=== PATIENT | male | born 1960 | race Hispanic/Latino ===

== ENCOUNTER 2020-09-04 12:37 | Emergency (ER) | payer MEDICARE, SELFPAY ==
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
[2020-09-04 14:10] LABS: Basophils # (Auto) 0.1 K/mm3 (0.0-0.1); Basophils % (Auto) 0.7 % (0.0-1.8); Eosinophils % (Auto) 0.3 % (0.0-4.3); Hematocrit 45.5 % (35.5-45.6); Hemoglobin 14.8 gm/dl (11.8-15.2); Lymphocytes # (Auto) 0.9 K/mm3 (1.2-5.4); Lymphocytes % (Auto) 7.4 % (13.4-35.0); Mean Corpuscular HGB Conc 33 % (32-34); Mean Corpuscular Volume 89 fl (84-94); Monocytes # (Auto) 0.4 K/mm3 (0.0-0.8); Monocytes % (Auto) 3.2 % (0.0-7.3); Platelet Count 353 K/mm3 (140-440); Red Blood Count 5.09 M/mm3 (3.65-5.03)
[2020-09-04 14:57] LABS: Blood Urea Nitrogen 11 mg/dL (9-20); Calcium 9.5 mg/dL (8.4-10.2); Hemolysis Index 13
[2020-09-04 14:58] LABS: BUN/Creatinine Ratio 22
[2020-09-04 15:39] LABS: Bilirubin,Urine NEG (Negative); Blood,Urine NEG (Negative); Color,Urine Straw (Yellow); Mucus,Urine FEW /HPF; Protein,Urine <15 mg/dL mg/dL (Negative); RBC,Urine < 1.0 /HPF (0.0-6.0); Urobilinogen,Urine < 2.0 mg/dL (<2.0)
[2020-09-04 15:47] LABS: Amphetamine Screen,Urine PRESUMPTIVE NEGATIVE; Benzodiazepines Screen,Urine PRESUMPTIVE NEGATIVE; Cannabinoid Screen,Urine PRESUMPTIVE NEGATIVE; Cocaine Screen,Urine PRESUMPTIVE NEGATIVE; Methadone Screen,Urine PRESUMPTIVE NEGATIVE; Opiate Screen,Urine PRESUMPTIVE NEGATIVE
[2020-09-04] MEDS: levoFLOXacin 500 MG TAB PO SCH (18:06)
[2020-09-04] MEDS: ACETAMINOPHEN 325 MG TAB PO PRN (20:07)
[2020-09-05] MEDS ORDERED: clonazePAM 0.5 MG TAB PO PRN (08:43)
[2020-09-05] MEDS ORDERED: ALPRAZolam 0.5 MG TAB PO PRN (08:43)
[2020-09-05] MEDS ORDERED: hydrOXYzine HCL 25 MG TAB PO PRN (08:43)
[2020-09-05] MEDS ORDERED: diphenhydrAMINE 25 MG CAP PO PRN (08:43)
[2020-09-05] MEDS: ACETAMINOPHEN 325 MG TAB PO PRN (08:53)
[2020-09-05] MEDS ORDERED: MEMANTINE 10 MG TAB PO SCH (10:00)
[2020-09-05] MEDS ORDERED: FAMOTIDINE 20 MG TAB PO SCH (10:00)
[2020-09-05] MEDS: levoFLOXacin 500 MG TAB PO SCH (10:08)
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
[2020-09-05] MEDS ORDERED: risperiDONE 0.25 MG TAB PO SCH (12:00)
[2020-09-05] MEDS ORDERED: VALPROIC ACID 250 MG CAP PO SCH (12:00)
[2020-09-05 19:28] VITALS: BP 95/50
[2020-09-05] MEDS ORDERED: PRAVASTATIN 40 MG TAB PO SCH (22:00)
== END 2020-09-05 19:48 | disposition other institution (70) ==
LOC: ED 12:37
DX: F25.9 Schizoaffective disorder, unspecified (principal); N39.0 Urinary tract infection, site not specified; I10 Essential (primary) hypertension; F31.9 Bipolar disorder, unspecified; Z98.890 Other specified postprocedural states; Z87.891 Personal history of nicotine dependence; Z79.899 Other long term (current) drug therapy
CPT/HCPCS: 36415; 80048; 80307; 81001; 85025; 99285; U0003; 80320; A9270-GY; G0480

== ENCOUNTER 2020-09-05 16:16 | Inpatient (IN) | payer MEDICARE ==
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
[2020-09-05] MEDS: traZODone 50 MG TAB PO SCH (22:31)
[2020-09-05] MEDS: OMEGA-3 FATTY ACIDS/FISH OIL 1 GRAM CAP PO SCH (22:31)
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
[2020-09-06] MEDS: risperiDONE 0.25 MG TAB PO SCH ×2 (11:01→21:38)
[2020-09-06] MEDS: VALPROIC ACID 250 MG CAP PO SCH ×2 (11:01→21:38)
[2020-09-06] MEDS: OMEGA-3 FATTY ACIDS/FISH OIL 1 GRAM CAP PO SCH ×2 (11:02→21:37)
[2020-09-06] MEDS: PARoxetine 10 MG TAB PO SCH (11:07)
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
[2020-09-06] MEDS: traZODone 50 MG TAB PO SCH (21:37)
[2020-09-06] MEDS: MELATONIN 5 MG TAB PO PRN (21:38)
--- NOTE | 2020-09-07 09:16 | Progress Note ---
Subjective Date of service: 09/07/20 Principal diagnosis: (1) Schizoaffective disorder/Outbursts of explosive behavior Subjective Comment: Per Psych Nurse: Pt is observed in his room isolative and withdrawn with the covers over his head. He states he feels sad but is unable to verbalize why he f eels that way. He minimally interacts with staff but shows no s/s of distress. Psych Progress Patient reports he is fine, has no complaints, no behavioral issues reported per nurse and compliant with medicine. patient has history of dementia with underlying cognitive impairement hence only interacts minimally verbally. REVIEW OF SYSTEMS Constitutional: Negative for weight loss ENT: Negative for stridor Respiratory: Negative for cough or hemoptysis All other systems reviewed and are negative MENTAL STATUS EXAMINATION General Appearance and Behavior: Age appropriate, good hygiene, wearing appropriate clothes, , good eye contact, cooperative with questioning. Cooperation: Participating/engaged Psychomotor Behavior: unremarkable and within normal limits Mood: Good Affect and affective range: congruent with mood Thought Process: Fluent/Logical, Thought Content: Within reality Speech: confused, pressured, loud volume Intellectual Functioning: Average Suicidal Ideation: denies Homicidal Ideation: Denies HI Impulse Control: Impaired Insight and Judgment: Limited insight and judgment Memory: Prospective memory impaired Attention: Normal Orientation: Alert, oriented Assessment and Plan - Psychiatric problem (1) Schizoaffective disorder Current Visit: Yes Status: Acute (2) Outbursts of explosive behavior Current Visit: Yes Status: Acute Treatment Plan Started on Valproate and Parozetine Patient admitted for inpatient psychiatric evaluation, medication adjustment and close monitoring The patient's behavior, mood, sleep and appetite will be closely monitored. Patient enrolled in individual and group therapeutic sessions and encouraged to attend. Patient provided with a safe and structured environment. Patient's physical health needs will be addressed by the Hospitalist. Hospitalist Consulted Labs including CBC, CMP, Lipid profile and Hemoglobin A1C levels ordered for baseline reference Social Assessment will be completed and the Self Pay Collector will work with patient and family to ensure a suitable and safe disposition Medication adjustment will be made as clinically indicated Usual Wellness Yarsani/Preservation: - Start Trazodone 50 mg po QHS & 50 mg po QHS PRN between 10 PM & 2 AM for insomnia - Start Melatonin 5 mg po QHS to promote circadian rhythm - Start [place]-3 for brain health, reduce impulsivity, and as adjunctive treatment for mood disorder, continue upon discharge given overall benefits. - Start B1 prophylaxis with 200 mg po for 5 days The patient agreed on the treatment plan, understood the risk, benefit, alternative treatment, potential consequence of no treatment, and gave informed consent. Initial Certification Inpatient psych services: I certify that the inpatient psychiatric services are required for treatment that could reasonably be expected to improve the patient's condition. Estimated days: 6 Post hospital care: primary care provider, psychiatric provider Medications and Allergies Allergies Allergy/AdvReac Type Severity Reaction Status Date / Time No Known Allergies Allergy Unverified 09/04/20 19:43 Home Medications Medication Instructions Recorded Confirmed Last Taken Type Escitalopram [Lexapro] 10 mg PO DAILY 09/05/20 09/07/20 Unknown History Famotidine [Acid Controller] 20 mg PO BID 09/05/20 09/07/20 Unknown History HYDROcodone/ACETAMINOPHEN 5 - 325 mg PO PRN 09/05/20 09/07/20 Unknown History [Verdrocet 2.5-325 mg TAB] ISOSORBIDE MONOnitrate [Imdur ER] 30 mg PO DAILY 09/05/20 09/07/20 Unknown History Memantine [Namenda] 10 mg PO BID 09/05/20 09/07/20 Unknown History Pravastatin [Pravachol] 40 mg PO QHS 09/05/20 09/07/20 Unknown History Tamsulosin [Flomax] 0.4 mg PO QDAY 09/05/20 09/07/20 Unknown History amantadine [Symmetrel] 100 mg PO DAILY 09/05/20 09/07/20 Unknown History clonazePAM [ Klonopin] 0.5 mg PO DAILY PRN 09/05/20 09/07/20 Unknown History hydrOXYzine HCL [Atarax] 25 mg PO Q6HR PRN 09/05/20 09/07/20 Unknown History Multivitamin 1 tab PO DAILY 09/07/20 09/07/20 Unknown History Sennosides [Senna] 8.6 mg PO QPM 09/07/20 09/07/20 Unknown History Vitamin D3 50,000UNIT CAP 50,000 unit PO QWEEK 09/07/20 09/07/20 Unknown History Active Meds: Active Medications Fish Oil (Fish Oil) 2,000 mg PO BID [facility] Last Admin: 09/06/20 21:37 Dose: 2,000 mg Documented by: Melatonin (Melatonin) 5 mg PO QHS PRN PRN Reason: Sleep Last Admin: 09/06/20 21:38 Dose: 5 mg Documented by: Paroxetine HCl (Paxil) 10 mg PO QDAY [facility] Last Admin: 09/06/20 11:07 Dose: Not Given Documented by: Risperidone (Risperdal) 0.5 mg PO BID [facility] Last Admin: 09/06/20 21:38 Dose: 0.5 mg Documented by: Trazodone HCl (Desyrel) 50 mg PO QHS [facility] Last Admin: 09/06/20 21:37 Dose: 50 mg Documented by: Valproic Acid (Depakene) 250 mg PO BID [facility] Last Admin: 09/06/20 21:38 Dose: 250 mg Documented by: Results - Results Labs/Vitals: Laboratory Last Values POC Glucose 97 (70-105) 09/07/20 08:17 Last Vital Signs Temp 98.9 F 09/06/20 19:45 Pulse 73 09/06/20 19:45 Resp 20 09/06/20 19:45 BP 103/61 09/06/20 19:45 Pulse Ox 96 09/06/20 19:45
[2020-09-07] MEDS: CETIRIZINE 10 MG TAB PO SCH (10:35)
[2020-09-07] MEDS: OMEGA-3 FATTY ACIDS/FISH OIL 1 GRAM CAP PO SCH ×2 (10:35→21:07)
[2020-09-07] MEDS: VALPROIC ACID 250 MG CAP PO SCH ×2 (10:35→21:07)
[2020-09-07] MEDS: risperiDONE 0.25 MG TAB PO SCH ×2 (10:35→21:07)
[2020-09-07] MEDS: PARoxetine 10 MG TAB PO SCH (12:07)
[2020-09-07 16:07] LABS: Alanine Aminotransferase 27 units/L (7-56); Blood Urea Nitrogen 15 mg/dL (9-20); Calcium 9.5 mg/dL (8.4-10.2); Hemolysis Index 17
[2020-09-07 16:08] LABS: BUN/Creatinine Ratio 30; Chol/HDL Ratio 2.61 %
[2020-09-07 16:13] LABS: Basophils # (Auto) 0.1 K/mm3 (0.0-0.1); Basophils % (Auto) 1.3 % (0.0-1.8); Eosinophils # (Auto) 0.2 K/mm3 (0.0-0.4); Eosinophils % (Auto) 2.5 % (0.0-4.3); Hematocrit 45.4 % (35.5-45.6); Hemoglobin 15.1 gm/dl (11.8-15.2); Lymphocytes # (Auto) 2.3 K/mm3 (1.2-5.4); Mean Corpuscular HGB Conc 33 % (32-34); Mean Corpuscular Volume 91 fl (84-94); Monocytes # (Auto) 0.6 K/mm3 (0.0-0.8); Monocytes % (Auto) 6.3 % (0.0-7.3); Platelet Count 362 K/mm3 (140-440); Red Blood Count 5.01 M/mm3 (3.65-5.03); Red Cell Distribution Width 13.9 % (13.2-15.2)
[2020-09-07 16:17] LABS: Hepatitis B Surface Antigen Non-Reactive (Negative); Hepatitis C Virus Antibody Non-Reactive (NonReactive)
[2020-09-07] MEDS: MELATONIN 5 MG TAB PO PRN (21:07)
[2020-09-07] MEDS: traZODone 50 MG TAB PO SCH (21:07)
--- NOTE | 2020-09-08 09:17 | Progress Note ---
Subjective Date of service: 09/08/20 Principal diagnosis: (1) Schizoaffective disorder/Outbursts of explosive behavior Subjective Comment: Per Psych Nurse: Pt is non ambulatory and uses a wheel chair. He is a/o x 2 mood and affect is pleasant. Pt answers in the affirmative to all question while smiling inappropriately. He appears to have some difficulty in understanding questions,but is easily redirectable. Pt is compliant with routine meds and prn melatonin 5mg given for sleep which was effective. Appetite good and no complaints of pain or itching. Pt is encouraged to attend to his adls. No behavior issues. Will continue to monitor q 15 min for safety. Psych Progress Patient has history of dementia with underlying cognitive impairement hence only interacts minimally verbally. Patient always respond to conversation in the same way everyday by extending his arms out. Patient looks happy, reports doing good, says food is good and has had no behavioral issues he also says he has not gotten in fight with no one. Reason for continuing inpatient psychiatric hospitalization: Check Valproate levels tomorrow. EVIEW OF SYSTEMS Constitutional: Negative for weight loss ENT: Negative for stridor Respiratory: Negative for cough or hemoptysis All other systems reviewed and are negative MENTAL STATUS EXAMINATION General Appearance and Behavior: Age appropriate, good hygiene, wearing appropriate clothes, , good eye contact, cooperative with questioning. Cooperation: Participating/engaged Psychomotor Behavior: unremarkable and within normal limits Mood: Good Affect and affective range: congruent with mood Thought Process: Fluent/Logical, Thought Content: Within reality Speech: confused, pressured, loud volume Intellectual Functioning: Average Suicidal Ideation: denies Homicidal Ideation: Denies HI Impulse Control: Impaired Insight and Judgment: Limited insight and judgment Memory: Prospective memory impaired Attention: Normal Orientation: Alert, oriented Assessment and Plan - Psychiatric problem (1) Schizoaffective disorder Current Visit: Yes Status: Acute (2) Outbursts of explosive behavior Current Visit: Yes Status: Acute Treatment Plan Started on Valproate and Parozetine. WIll check valproate levels tomorrow Patient admitted for inpatient psychiatric evaluation, medication adjustment and close monitoring The patient's behavior, mood, sleep and appetite will be closely monitored. Patient enrolled in individual and group therapeutic sessions and encouraged to attend. Patient provided with a safe and structured environment. Patient's physical health needs will be addressed by the Hospitalist. Hospitalist Consulted Labs including CBC, CMP, Lipid profile and Hemoglobin A1C levels ordered for baseline reference Social Assessment will be completed and the Help Desk Representative will work with patient and family to ensure a suitable and safe disposition Medication adjustment will be made as clinically indicated Usual Wellness Mormonism/Preservation: - Start Trazodone 50 mg po QHS & 50 mg po QHS PRN between 10 PM & 2 AM for insomnia - Start Melatonin 5 mg po QHS to promote circadian rhythm - Start [place]-3 for brain health, reduce impulsivity, and as adjunctive treatment for mood disorder, continue upon discharge given overall benefits. - Start B1 prophylaxis with 200 mg po for 5 days The patient agreed on the treatment plan, understood the risk, benefit, alternative treatment, potential consequence of no treatment, and gave informed consent. Initial Certification Inpatient psych services: I certify that the inpatient psychiatric services are required for treatment that could reasonably be expected to improve the patient's condition. Estimated days: 5 Post hospital care: primary care provider, psychiatric provider Medications and Allergies Allergies Allergy/AdvReac Type Severity Reaction Status Date / Time No Known Allergies Allergy Unverified 09/04/20 19:43 Home Medications Medication Instructions Recorded Confirmed Last Taken Type Escitalopram [Lexapro] 10 mg PO DAILY 09/05/20 09/07/20 Unknown History Famotidine [Acid Controller] 20 mg PO BID 09/05/20 09/07/20 Unknown History HYDROcodone/ACETAMINOPHEN 5 - 325 mg PO PRN 09/05/20 09/07/20 Unknown History [Verdrocet 2.5-325 mg TAB] ISOSORBIDE MONOnitrate [Imdur ER] 30 mg PO DAILY 09/05/20 09/07/20 Unknown History Memantine [Namenda] 10 mg PO BID 09/05/20 09/07/20 Unknown History Pravastatin [Pravachol] 40 mg PO QHS 09/05/20 09/07/20 Unknown History Tamsulosin [Flomax] 0.4 mg PO QDAY 09/05/20 09/07/20 Unknown History amantadine [Symmetrel] 100 mg PO DAILY 09/05/20 09/07/20 Unknown History clonazePAM [ Klonopin] 0.5 mg PO DAILY PRN 09/05/20 09/07/20 Unknown History hydrOXYzine HCL [Atarax] 25 mg PO Q6HR PRN 09/05/20 09/07/20 Unknown History Multivitamin 1 tab PO DAILY 09/07/20 09/07/20 Unknown History Sennosides [Senna] 8.6 mg PO QPM 09/07/20 09/07/20 Unknown History Vitamin D3 50,000UNIT CAP 50,000 unit PO QWEEK 09/07/20 09/07/20 Unknown History Active Meds: Active Medications Cetirizine HCl (Cetirizine) 10 mg PO QDAY [facility] Last Admin: 09/07/20 10:35 Dose: 10 mg Documented by: Fish Oil (Fish Oil) 2,000 mg PO BID [facility] Last Admin: 09/07/20 21:07 Dose: 2,000 mg Documented by: Melatonin (Melatonin) 5 mg PO QHS PRN PRN Reason: Sleep Last Admin: 09/07/20 21:07 Dose: 5 mg Documented by: Paroxetine HCl (Paxil) 10 mg PO QDAY [facility] Last Admin: 09/07/20 12:07 Dose: 10 mg Documented by: Risperidone (Risperdal) 0.5 mg PO BID [facility] Last Admin: 09/07/20 21:07 Dose: 0.5 mg Documented by: Trazodone HCl (Desyrel) 50 mg PO QHS [facility] Last Admin: 09/07/20 21:07 Dose: 50 mg Documented by: Valproic Acid (Depakene) 250 mg PO BID [facility] Last Admin: 09/07/20 21:07 Dose: 250 mg Documented by: Results - Results Labs/Vitals: Laboratory Last Values WBC 9.1 K/mm3 (4.5-11.0) 09/07/20 15:11 RBC 5.01 M/mm3 (3.65-5.03) 09/07/20 15:11 Hgb 15.1 gm/dl (11.8-15.2) 09/07/20 15:11 Hct 45.4 % (35.5-45.6) 09/07/20 15:11 MCV 91 fl (84-94) 09/07/20 15:11 MCH 30 pg (28-32) 09/07/20 15:11 MCHC 33 % (32-34) 09/07/20 15:11 RDW 13.9 % (13.2-15.2) 09/07/20 15:11 Plt Count 362 K/mm3 (140-440) 09/07/20 15:11 Lymph % (Auto) 25.0 % (13.4-35.0) 09/07/20 15:11 [place] % (Auto) 6.3 % (0.0-7.3) 09/07/20 15:11 Eos % (Auto) 2.5 % (0.0-4.3) 09/07/20 15:11 Baso % (Auto) 1.3 % (0.0-1.8) 09/07/20 15:11 Lymph # (Auto) 2.3 K/mm3 (1.2-5.4) 09/07/20 15:11 [place] # (Auto) 0.6 K/mm3 (0.0-0.8) 09/07/20 15:11 Eos # (Auto) 0.2 K/mm3 (0.0-0.4) 09/07/20 15:11 Baso # (Auto) 0.1 K/mm3 (0.0-0.1) 09/07/20 15:11 Seg Neutrophils % 64.9 % (40.0-70.0) 09/07/20 15:11 Seg Neutrophils # 5.9 K/mm3 (1.8-7.7) 09/07/20 15:11 Sodium 137 mmol/L (137-145) 09/07/20 15:11 Potassium 4.0 mmol/L (3.6-5.0) 09/07/20 15:11 Chloride 98.8 mmol/L (98-107) 09/07/20 15:11 Carbon Dioxide 22 mmol/L (22-30) 09/07/20 15:11 Anion Gap 20 mmol/L 09/07/20 15:11 BUN 15 mg/dL (9-20) 09/07/20 15:11 Creatinine 0.5 mg/dL (0.8-1.3) L 09/07/20 15:11 Estimated GFR > 60 ml/min 09/07/20 15:11 BUN/Creatinine Ratio 30 % 09/07/20 15:11 Glucose 95 mg/dL (75-100) 09/07/20 15:11 POC Glucose 89 (70-105) 09/08/20 08:02 Hemoglobin A1c 5.2 % (4-6) 09/07/20 15:11 Calcium 9.5 mg/dL (8.4-10.2) 09/07/20 15:11 Total Bilirubin 0.20 mg/dL (0.1-1.2) 09/07/20 15:11 AST 16 units/L (5-40) 09/07/20 15:11 ALT 27 units/L (7-56) 09/07/20 15:11 Alkaline Phosphatase 170 units/L (35-129) H 09/07/20 15:11 Total Protein 7.3 g/dL (6.3-8.2) 09/07/20 15:11 Albumin 4.0 g/dL (3.9-5) 09/07/20 15:11 Albumin/Globulin Ratio 1.2 % 09/07/20 15:11 Triglycerides 150 mg/dL (2-149) H 09/07/20 15:11 Cholesterol 154 mg/dL (50-199) 09/07/20 15:11 LDL Cholesterol Direct 80 mg/dL (50-130) 09/07/20 15:11 HDL Cholesterol 59 mg/dL (40-59) 09/07/20 15:11 Cholesterol/HDL Ratio 2.61 % 09/07/20 15:11 TSH 0.845 mlU/mL (0.270-4.200) 09/07/20 15:11 Hepatitis A IgM Ab Non-reactive (NonReactive) 09/07/20 15:11 Hep Bs Antigen Non-reactive (Negative) 09/07/20 15:11 Hep B Core IgM Ab Non-reactive (NonReactive) 09/07/20 15:11 Hepatitis C Antibody Non-reactive (NonReactive) 09/07/20 15:11 Last Vital Signs Temp 99.1 F 09/07/20 19:24 Pulse 65 09/07/20 19:24 Resp 16 09/07/20 19:24 BP 116/70 09/07/20 19:24 Pulse Ox 95 09/07/20 19:24
[2020-09-08] MEDS: OMEGA-3 FATTY ACIDS/FISH OIL 1 GRAM CAP PO SCH ×2 (11:21→21:10)
[2020-09-08] MEDS: risperiDONE 0.25 MG TAB PO SCH ×2 (11:22→21:10)
[2020-09-08] MEDS: CETIRIZINE 10 MG TAB PO SCH (11:22)
[2020-09-08] MEDS: VALPROIC ACID 250 MG CAP PO SCH ×2 (11:22→21:10)
[2020-09-08] MEDS: PARoxetine 10 MG TAB PO SCH (12:55)
[2020-09-08] MEDS: traZODone 50 MG TAB PO SCH (21:10)
[2020-09-08] MEDS: MELATONIN 5 MG TAB PO PRN (21:12)
[2020-09-09] MEDS: OMEGA-3 FATTY ACIDS/FISH OIL 1 GRAM CAP PO SCH ×2 (09:05→21:20)
[2020-09-09] MEDS: VALPROIC ACID 250 MG CAP PO SCH ×2 (09:05→21:20)
[2020-09-09] MEDS: CETIRIZINE 10 MG TAB PO SCH (09:05)
[2020-09-09] MEDS: risperiDONE 0.25 MG TAB PO SCH (09:05)
--- NOTE | 2020-09-09 11:03 | Progress Note ---
Subjective Date of service: 09/09/20 Principal diagnosis: (1) Schizoaffective disorder/Outbursts of explosive behavior Subjective Comment: The patient's medical record was reviewed and the patient's progress was discussed with the nursing staff. The staff states the patient has occasionally yelling and outburst. Also states his thought process is disorganized and he answers yes to every question. During my interview with the patient today he is rolling around in his wheelchair. He is a/ox 1. He is [place]. The patient states he was brought to the hospital because of "my legs and back." He says, "and I'm itching all over." The patient denies SI/HI or hallucinations of any kind. Reason for continued inpatient admission: The patient continues to have outburst and have disorganized thought process. Will continue to stabilize and treat. EVIEW OF SYSTEMS Constitutional: Negative for weight loss ENT: Negative for stridor Respiratory: Negative for cough or hemoptysis All other systems reviewed and are negative MENTAL STATUS EXAMINATION General Appearance and Behavior: Age appropriate, wearing appropriate clothes, calm and cooperative. Polite Mood: "okay" Affect and affective range: congruent with mood Thought Process: reported by nurse as disorganized at times Thought Content: hallucinations Speech: Normal volume, Regular rate and rhythm Suicidal Ideation: Denies Homicidal Ideation: Denies Hallucinations: Denies Delusions: None elicited Impulse Control: Unimpaired Insight and Judgment: Limited insight and judgment Memory/Cognition: Impaired Attention: Normal Orientation: Alert, oriented Assessment (1) Schizoaffective disorder Current Visit: Yes Status: Acute (2) Outbursts of explosive behavior Current Visit: Yes Status: Acute Treatment Plan Patient admitted for inpatient psychiatric evaluation, medication adjustment and close monitoring The patient's behavior, mood, sleep and appetite will be closely monitored. Patient enrolled in individual and group therapeutic sessions and encouraged to attend. Patient provided with a safe and structured environment. Patient's physical health needs will be addressed by the Hospitalist. Hospitalist Consulted Labs including CBC, CMP, Lipid profile and Hemoglobin A1C levels ordered for baseline reference Social Assessment will be completed and the Air Quality Instrument Specialist will work with patient and family to ensure a suitable and safe disposition Medication adjustment will be made as clinically indicated Increase Risperidone 1mg po BID Usual Wellness Mandaeism/Preservation: - Start Trazodone 50 mg po QHS & 50 mg po QHS PRN between 10 PM & 2 AM for insomnia - Start Melatonin 5 mg po QHS to promote circadian rhythm Estimated days: 7 Post hospital care: primary care provider, psychiatric provider Medications and Allergies Allergies Allergy/AdvReac Type Severity Reaction Status Date / Time No Known Allergies Allergy Unverified 09/04/20 19:43 Home Medications Medication Instructions Recorded Confirmed Last Taken Type Escitalopram [Lexapro] 10 mg PO DAILY 09/05/20 09/07/20 Unknown History Famotidine [Acid Controller] 20 mg PO BID 09/05/20 09/07/20 Unknown History HYDROcodone/ACETAMINOPHEN 5 - 325 mg PO PRN 09/05/20 09/07/20 Unknown History [Verdrocet 2.5-325 mg TAB] ISOSORBIDE MONOnitrate [Imdur ER] 30 mg PO DAILY 09/05/20 09/07/20 Unknown History Memantine [Namenda] 10 mg PO BID 09/05/20 09/07/20 Unknown History Pravastatin [Pravachol] 40 mg PO QHS 09/05/20 09/07/20 Unknown History Tamsulosin [Flomax] 0.4 mg PO QDAY 09/05/20 09/07/20 Unknown History amantadine [Symmetrel] 100 mg PO DAILY 09/05/20 09/07/20 Unknown History clonazePAM [ Klonopin] 0.5 mg PO DAILY PRN 09/05/20 09/07/20 Unknown History hydrOXYzine HCL [Atarax] 25 mg PO Q6HR PRN 09/05/20 09/07/20 Unknown History Multivitamin 1 tab PO DAILY 09/07/20 09/07/20 Unknown History Sennosides [Senna] 8.6 mg PO QPM 09/07/20 09/07/20 Unknown History Vitamin D3 50,000UNIT CAP 50,000 unit PO QWEEK 09/07/20 09/07/20 Unknown History Active Meds: Active Medications Cetirizine HCl (Cetirizine) 10 mg PO QDAY [facility] Last Admin: 09/09/20 09:05 Dose: 10 mg Documented by: Fish Oil (Fish Oil) 2,000 mg PO BID [facility] Last Admin: 09/09/20 09:05 Dose: 2,000 mg Documented by: Melatonin (Melatonin) 5 mg PO QHS PRN PRN Reason: Sleep Last Admin: 09/08/20 21:12 Dose: 5 mg Documented by: Paroxetine HCl (Paxil) 10 mg PO QDAY [facility] Last Admin: 09/08/20 12:55 Dose: 10 mg Documented by: Risperidone (Risperdal) 0.5 mg PO BID [facility] Last Admin: 09/09/20 09:05 Dose: 0.5 mg Documented by: Trazodone HCl (Desyrel) 50 mg PO QHS [facility] Last Admin: 09/08/20 21:10 Dose: 50 mg Documented by: Valproic Acid (Depakene) 250 mg PO BID [facility] Last Admin: 09/09/20 09:05 Dose: 250 mg Documented by: Results - Results Labs/Vitals: Laboratory Last Values WBC 9.1 K/mm3 (4.5-11.0) 09/07/20 15:11 RBC 5.01 M/mm3 (3.65-5.03) 09/07/20 15:11 Hgb 15.1 gm/dl (11.8-15.2) 09/07/20 15:11 Hct 45.4 % (35.5-45.6) 09/07/20 15:11 MCV 91 fl (84-94) 09/07/20 15:11 MCH 30 pg (28-32) 09/07/20 15:11 MCHC 33 % (32-34) 09/07/20 15:11 RDW 13.9 % (13.2-15.2) 09/07/20 15:11 Plt Count 362 K/mm3 (140-440) 09/07/20 15:11 Lymph % (Auto) 25.0 % (13.4-35.0) 09/07/20 15:11 [place] % (Auto) 6.3 % (0.0-7.3) 09/07/20 15:11 Eos % (Auto) 2.5 % (0.0-4.3) 09/07/20 15:11 Baso % (Auto) 1.3 % (0.0-1.8) 09/07/20 15:11 Lymph # (Auto) 2.3 K/mm3 (1.2-5.4) 09/07/20 15:11 [place] # (Auto) 0.6 K/mm3 (0.0-0.8) 09/07/20 15:11 Eos # (Auto) 0.2 K/mm3 (0.0-0.4) 09/07/20 15:11 Baso # (Auto) 0.1 K/mm3 (0.0-0.1) 09/07/20 15:11 Seg Neutrophils % 64.9 % (40.0-70.0) 09/07/20 15:11 Seg Neutrophils # 5.9 K/mm3 (1.8-7.7) 09/07/20 15:11 Sodium 137 mmol/L (137-145) 09/07/20 15:11 Potassium 4.0 mmol/L (3.6-5.0) 09/07/20 15:11 Chloride 98.8 mmol/L (98-107) 09/07/20 15:11 Carbon Dioxide 22 mmol/L (22-30) 09/07/20 15:11 Anion Gap 20 mmol/L 09/07/20 15:11 BUN 15 mg/dL (9-20) 09/07/20 15:11 Creatinine 0.5 mg/dL (0.8-1.3) L 09/07/20 15:11 Estimated GFR > 60 ml/min 09/07/20 15:11 BUN/Creatinine Ratio 30 % 09/07/20 15:11 Glucose 95 mg/dL (75-100) 09/07/20 15:11 POC Glucose 89 (70-105) 09/08/20 08:02 Hemoglobin A1c 5.2 % (4-6) 09/07/20 15:11 Calcium 9.5 mg/dL (8.4-10.2) 09/07/20 15:11 Total Bilirubin 0.20 mg/dL (0.1-1.2) 09/07/20 15:11 AST 16 units/L (5-40) 09/07/20 15:11 ALT 27 units/L (7-56) 09/07/20 15:11 Alkaline Phosphatase 170 units/L (35-129) H 09/07/20 15:11 Total Protein 7.3 g/dL (6.3-8.2) 09/07/20 15:11 Albumin 4.0 g/dL (3.9-5) 09/07/20 15:11 Albumin/Globulin Ratio 1.2 % 09/07/20 15:11 Triglycerides 150 mg/dL (2-149) H 09/07/20 15:11 Cholesterol 154 mg/dL (50-199) 09/07/20 15:11 LDL Cholesterol Direct 80 mg/dL (50-130) 09/07/20 15:11 HDL Cholesterol 59 mg/dL (40-59) 09/07/20 15:11 Cholesterol/HDL Ratio 2.61 % 09/07/20 15:11 TSH 0.845 mlU/mL (0.270-4.200) 09/07/20 15:11 Hepatitis A IgM Ab Non-reactive (NonReactive) 09/07/20 15:11 Hep Bs Antigen Non-reactive (Negative) 09/07/20 15:11 Hep B Core IgM Ab Non-reactive (NonReactive) 09/07/20 15:11 Hepatitis C Antibody Non-reactive (NonReactive) 09/07/20 15:11 Last Vital Signs Temp 97.6 F 09/09/20 07:21 Pulse 60 09/09/20 07:21 Resp 18 09/09/20 07:21 BP 101/56 09/09/20 07:21 Pulse Ox 95 09/09/20 07:21
[2020-09-09] MEDS: PARoxetine 10 MG TAB PO SCH (12:06)
[2020-09-09] MEDS: MELATONIN 5 MG TAB PO PRN (21:20)
[2020-09-09] MEDS: traZODone 50 MG TAB PO SCH (21:20)
[2020-09-09] MEDS: risperiDONE 1 MG TAB PO SCH (21:20)
--- NOTE | 2020-09-10 08:09 | Progress Note ---
Subjective Date of service: 09/10/20 Principal diagnosis: (1) Schizoaffective disorder/Outbursts of explosive behavior Subjective Comment: The patient's medical record was reviewed and the patient's progress was discussed with the nursing staff. During my interview with the patient today, he is sitting in the dayroom. The patient states "I'm not good, I didn't sleep all night." He says "I was itching." He denies SI/HI or hallucinations of any kind. Reason for continued inpatient admission: The patient at times has outbursts and disorganized thought process. Will continue to stabilize and treat. EVIEW OF SYSTEMS Constitutional: Negative for weight loss ENT: Negative for stridor Respiratory: Negative for cough or hemoptysis All other systems reviewed and are negative MENTAL STATUS EXAMINATION General Appearance and Behavior: Age appropriate, wearing appropriate clothes, calm and cooperative. Polite Mood: "not good" Affect and affective range: congruent with mood Thought Process: reported by nurse as disorganized at times Thought Content: hallucinations Speech: Normal volume, Regular rate and rhythm Suicidal Ideation: Denies Homicidal Ideation: Denies Hallucinations: Denies Delusions: None elicited Impulse Control: Unimpaired Insight and Judgment: Limited insight and judgment Memory/Cognition: Impaired Attention: Normal Orientation: Alert, oriented Assessment (1) Schizoaffective disorder Current Visit: Yes Status: Acute (2) Outbursts of explosive behavior Current Visit: Yes Status: Acute Treatment Plan Patient admitted for inpatient psychiatric evaluation, medication adjustment and close monitoring The patient's behavior, mood, sleep and appetite will be closely monitored. Patient enrolled in individual and group therapeutic sessions and encouraged to attend. Patient provided with a safe and structured environment. Patient's physical health needs will be addressed by the Hospitalist. Hospitalist Consulted Labs including CBC, CMP, Lipid profile and Hemoglobin A1C levels ordered for baseline reference Social Assessment will be completed and the Net Coordinator will work with patient and family to ensure a suitable and safe disposition Medication adjustment will be made as clinically indicated Increase Risperidone 1mg po BID yesterday Start Bendryl 25mg po daily prn itching Usual Wellness Sikh/Preservation: - Start Trazodone 50 mg po QHS & 50 mg po QHS PRN between 10 PM & 2 AM for insomnia - Start Melatonin 5 mg po QHS to promote circadian rhythm Estimated days: 5 Post hospital care: primary care provider, psychiatric provider Medications and Allergies Allergies Allergy/AdvReac Type Severity Reaction Status Date / Time No Known Allergies Allergy Unverified 09/04/20 19:43 Home Medications Medication Instructions Recorded Confirmed Last Taken Type Escitalopram [Lexapro] 10 mg PO DAILY 09/05/20 09/07/20 Unknown History Famotidine [Acid Controller] 20 mg PO BID 09/05/20 09/07/20 Unknown History HYDROcodone/ACETAMINOPHEN 5 - 325 mg PO PRN 09/05/20 09/07/20 Unknown History [Verdrocet 2.5-325 mg TAB] ISOSORBIDE MONOnitrate [Imdur ER] 30 mg PO DAILY 09/05/20 09/07/20 Unknown History Memantine [Namenda] 10 mg PO BID 09/05/20 09/07/20 Unknown History Pravastatin [Pravachol] 40 mg PO QHS 09/05/20 09/07/20 Unknown History Tamsulosin [Flomax] 0.4 mg PO QDAY 09/05/20 09/07/20 Unknown History amantadine [Symmetrel] 100 mg PO DAILY 09/05/20 09/07/20 Unknown History clonazePAM [ Klonopin] 0.5 mg PO DAILY PRN 09/05/20 09/07/20 Unknown History hydrOXYzine HCL [Atarax] 25 mg PO Q6HR PRN 09/05/20 09/07/20 Unknown History Multivitamin 1 tab PO DAILY 09/07/20 09/07/20 Unknown History Sennosides [Senna] 8.6 mg PO QPM 09/07/20 09/07/20 Unknown History Vitamin D3 50,000UNIT CAP 50,000 unit PO QWEEK 09/07/20 09/07/20 Unknown History Active Meds: Active Medications Cetirizine HCl (Cetirizine) 10 mg PO QDAY [facility] Last Admin: 09/09/20 09:05 Dose: 10 mg Documented by: Fish Oil (Fish Oil) 2,000 mg PO BID [facility] Last Admin: 09/09/20 21:20 Dose: 2,000 mg Documented by: Melatonin (Melatonin) 5 mg PO QHS PRN PRN Reason: Sleep Last Admin: 09/09/20 21:20 Dose: 5 mg Documented by: Paroxetine HCl (Paxil) 10 mg PO QDAY [facility] Last Admin: 09/09/20 12:06 Dose: 10 mg Documented by: Risperidone (Risperdal) 1 mg PO BID [facility] Last Admin: 09/09/20 21:20 Dose: 1 mg Documented by: Trazodone HCl (Desyrel) 50 mg PO QHS [facility] Last Admin: 09/09/20 21:20 Dose: 50 mg Documented by: Valproic Acid (Depakene) 250 mg PO BID [facility] Last Admin: 09/09/20 21:20 Dose: 250 mg Documented by: Results - Results Labs/Vitals: Laboratory Last Values WBC 9.1 K/mm3 (4.5-11.0) 09/07/20 15:11 RBC 5.01 M/mm3 (3.65-5.03) 09/07/20 15:11 Hgb 15.1 gm/dl (11.8-15.2) 09/07/20 15:11 Hct 45.4 % (35.5-45.6) 09/07/20 15:11 MCV 91 fl (84-94) 09/07/20 15:11 MCH 30 pg (28-32) 09/07/20 15:11 MCHC 33 % (32-34) 09/07/20 15:11 RDW 13.9 % (13.2-15.2) 09/07/20 15:11 Plt Count 362 K/mm3 (140-440) 09/07/20 15:11 Lymph % (Auto) 25.0 % (13.4-35.0) 09/07/20 15:11 [place] % (Auto) 6.3 % (0.0-7.3) 09/07/20 15:11 Eos % (Auto) 2.5 % (0.0-4.3) 09/07/20 15:11 Baso % (Auto) 1.3 % (0.0-1.8) 09/07/20 15:11 Lymph # (Auto) 2.3 K/mm3 (1.2-5.4) 09/07/20 15:11 [place] # (Auto) 0.6 K/mm3 (0.0-0.8) 09/07/20 15:11 Eos # (Auto) 0.2 K/mm3 (0.0-0.4) 09/07/20 15:11 Baso # (Auto) 0.1 K/mm3 (0.0-0.1) 09/07/20 15:11 Seg Neutrophils % 64.9 % (40.0-70.0) 09/07/20 15:11 Seg Neutrophils # 5.9 K/mm3 (1.8-7.7) 09/07/20 15:11 Sodium 137 mmol/L (137-145) 09/07/20 15:11 Potassium 4.0 mmol/L (3.6-5.0) 09/07/20 15:11 Chloride 98.8 mmol/L (98-107) 09/07/20 15:11 Carbon Dioxide 22 mmol/L (22-30) 09/07/20 15:11 Anion Gap 20 mmol/L 09/07/20 15:11 BUN 15 mg/dL (9-20) 09/07/20 15:11 Creatinine 0.5 mg/dL (0.8-1.3) L 09/07/20 15:11 Estimated GFR > 60 ml/min 09/07/20 15:11 BUN/Creatinine Ratio 30 % 09/07/20 15:11 Glucose 95 mg/dL (75-100) 09/07/20 15:11 POC Glucose 89 (70-105) 09/08/20 08:02 Hemoglobin A1c 5.2 % (4-6) 09/07/20 15:11 Calcium 9.5 mg/dL (8.4-10.2) 09/07/20 15:11 Total Bilirubin 0.20 mg/dL (0.1-1.2) 09/07/20 15:11 AST 16 units/L (5-40) 09/07/20 15:11 ALT 27 units/L (7-56) 09/07/20 15:11 Alkaline Phosphatase 170 units/L (35-129) H 09/07/20 15:11 Total Protein 7.3 g/dL (6.3-8.2) 09/07/20 15:11 Albumin 4.0 g/dL (3.9-5) 09/07/20 15:11 Albumin/Globulin Ratio 1.2 % 09/07/20 15:11 Triglycerides 150 mg/dL (2-149) H 09/07/20 15:11 Cholesterol 154 mg/dL (50-199) 09/07/20 15:11 LDL Cholesterol Direct 80 mg/dL (50-130) 09/07/20 15:11 HDL Cholesterol 59 mg/dL (40-59) 09/07/20 15:11 Cholesterol/HDL Ratio 2.61 % 09/07/20 15:11 TSH 0.845 mlU/mL (0.270-4.200) 09/07/20 15:11 Hepatitis A IgM Ab Non-reactive (NonReactive) 09/07/20 15:11 Hep Bs Antigen Non-reactive (Negative) 09/07/20 15:11 Hep B Core IgM Ab Non-reactive (NonReactive) 09/07/20 15:11 Hepatitis C Antibody Non-reactive (NonReactive) 09/07/20 15:11 Last Vital Signs Temp 99.0 F 09/09/20 22:00 Pulse 65 09/09/20 22:00 Resp 18 09/09/20 22:00 BP 103/63 09/09/20 22:00 Pulse Ox 96 09/09/20 22:00
[2020-09-10] MEDS ORDERED: diphenhydrAMINE 25 MG CAP PO PRN (08:12)
[2020-09-10] MEDS: PARoxetine 10 MG TAB PO SCH (09:26)
[2020-09-10] MEDS: VALPROIC ACID 250 MG CAP PO SCH ×2 (09:26→21:17)
[2020-09-10] MEDS: OMEGA-3 FATTY ACIDS/FISH OIL 1 GRAM CAP PO SCH ×2 (09:27→21:17)
[2020-09-10] MEDS: risperiDONE 1 MG TAB PO SCH ×2 (09:27→21:17)
[2020-09-10] MEDS: CETIRIZINE 10 MG TAB PO SCH (09:27)
--- NOTE | 2020-09-10 18:34 | XRay Report ---
Chest single view INDICATION: Dyspnea IMPRESSION: Ill-defined airspace disease is seen within the right perihilar region. No pneumothorax. Signer Name: Shahab Moore MD Signed: 09/10/2020 6:29 PM Workstation Name: [id number]
[2020-09-10] MEDS: traZODone 50 MG TAB PO SCH (21:15)
--- NOTE | 2020-09-11 08:30 | Progress Note ---
Subjective Date of service: 09/11/20 Principal diagnosis: (1) Schizoaffective disorder/Outbursts of explosive behavior Subjective Comment: The patient's medical record was reviewed and the patient's progress was discussed with the nursing staff. During my interview with the patient today, he is rolling in his wheelchair. The patient is pleasant. He is [place]. He says "I didn't sleep well. I thought you was giving me something for itching." Advised the patient he was ordered Benadryl. He denies SI/HI or hallucinations of any kind. Reason for continued inpatient admission: The patient has improved significantly. Will continue to stabilize to ensure for a safe discharge. EVIEW OF SYSTEMS Constitutional: Negative for weight loss ENT: Negative for stridor Respiratory: Negative for cough or hemoptysis All other systems reviewed and are negative MENTAL STATUS EXAMINATION General Appearance and Behavior: Age appropriate, wearing appropriate clothes, calm and cooperative. Polite Mood: "okay" Affect and affective range: congruent with mood Thought Process: goal directed Thought Content: None Speech: Normal volume, Regular rate and rhythm Suicidal Ideation: Denies Homicidal Ideation: Denies Hallucinations: Denies Delusions: None elicited Impulse Control: Unimpaired Insight and Judgment: Limited insight and judgment Memory/Cognition: Impaired Attention: Normal Orientation: Alert, oriented Assessment (1) Schizoaffective disorder Current Visit: Yes Status: Acute (2) Outbursts of explosive behavior Current Visit: Yes Status: Acute Treatment Plan Patient admitted for inpatient psychiatric evaluation, medication adjustment and close monitoring The patient's behavior, mood, sleep and appetite will be closely monitored. Patient enrolled in individual and group therapeutic sessions and encouraged to attend. Patient provided with a safe and structured environment. Patient's physical health needs will be addressed by the Hospitalist. Hospitalist Consulted Labs including CBC, CMP, Lipid profile and Hemoglobin A1C levels ordered for baseline reference Social Assessment will be completed and the Kiln Tester will work with patient and family to ensure a suitable and safe disposition Medication adjustment will be made as clinically indicated Start Bendryl 25mg po daily prn itching yesterday No changes today Usual Wellness Restorationist/Preservation: - Start Trazodone 50 mg po QHS & 50 mg po QHS PRN between 10 PM & 2 AM for insomnia - Start Melatonin 5 mg po QHS to promote circadian rhythm Estimated days: 3 Post hospital care: primary care provider, psychiatric provider Medications and Allergies Allergies Allergy/AdvReac Type Severity Reaction Status Date / Time No Known Allergies Allergy Unverified 09/04/20 19:43 Home Medications Medication Instructions Recorded Confirmed Last Taken Type Escitalopram [Lexapro] 10 mg PO DAILY 09/05/20 09/07/20 Unknown History Famotidine [Acid Controller] 20 mg PO BID 09/05/20 09/07/20 Unknown History HYDROcodone/ACETAMINOPHEN 5 - 325 mg PO PRN 09/05/20 09/07/20 Unknown History [Verdrocet 2.5-325 mg TAB] ISOSORBIDE MONOnitrate [Imdur ER] 30 mg PO DAILY 09/05/20 09/07/20 Unknown History Memantine [Namenda] 10 mg PO BID 09/05/20 09/07/20 Unknown History Pravastatin [Pravachol] 40 mg PO QHS 09/05/20 09/07/20 Unknown History Tamsulosin [Flomax] 0.4 mg PO QDAY 09/05/20 09/07/20 Unknown History amantadine [Symmetrel] 100 mg PO DAILY 09/05/20 09/07/20 Unknown History clonazePAM [ Klonopin] 0.5 mg PO DAILY PRN 09/05/20 09/07/20 Unknown History hydrOXYzine HCL [Atarax] 25 mg PO Q6HR PRN 09/05/20 09/07/20 Unknown History Multivitamin 1 tab PO DAILY 09/07/20 09/07/20 Unknown History Sennosides [Senna] 8.6 mg PO QPM 09/07/20 09/07/20 Unknown History Vitamin D3 50,000UNIT CAP 50,000 unit PO QWEEK 09/07/20 09/07/20 Unknown History Active Meds: Active Medications Cetirizine HCl (Cetirizine) 10 mg PO QDAY [facility] Last Admin: 09/10/20 09:27 Dose: 10 mg Documented by: Diphenhydramine HCl (Benadryl) 25 mg PO QHS PRN PRN Reason: Itching Fish Oil (Fish Oil) 2,000 mg PO BID [facility] Last Admin: 09/10/20 21:17 Dose: 2,000 mg Documented by: Melatonin (Melatonin) 5 mg PO QHS PRN PRN Reason: Sleep Last Admin: 09/09/20 21:20 Dose: 5 mg Documented by: Paroxetine HCl (Paxil) 10 mg PO QDAY [facility] Last Admin: 09/10/20 09:26 Dose: 10 mg Documented by: Risperidone (Risperdal) 1 mg PO BID [facility] Last Admin: 09/10/20 21:17 Dose: 1 mg Documented by: Trazodone HCl (Desyrel) 75 mg PO QHS [facility] Last Admin: 09/10/20 21:15 Dose: 75 mg Documented by: Valproic Acid (Depakene) 250 mg PO BID [facility] Last Admin: 09/10/20 21:17 Dose: 250 mg Documented by: Results - Results Labs/Vitals: Laboratory Last Values WBC 9.1 K/mm3 (4.5-11.0) 09/07/20 15:11 RBC 5.01 M/mm3 (3.65-5.03) 09/07/20 15:11 Hgb 15.1 gm/dl (11.8-15.2) 09/07/20 15:11 Hct 45.4 % (35.5-45.6) 09/07/20 15:11 MCV 91 fl (84-94) 09/07/20 15:11 MCH 30 pg (28-32) 09/07/20 15:11 MCHC 33 % (32-34) 09/07/20 15:11 RDW 13.9 % (13.2-15.2) 09/07/20 15:11 Plt Count 362 K/mm3 (140-440) 09/07/20 15:11 Lymph % (Auto) 25.0 % (13.4-35.0) 09/07/20 15:11 [place] % (Auto) 6.3 % (0.0-7.3) 09/07/20 15:11 Eos % (Auto) 2.5 % (0.0-4.3) 09/07/20 15:11 Baso % (Auto) 1.3 % (0.0-1.8) 09/07/20 15:11 Lymph # (Auto) 2.3 K/mm3 (1.2-5.4) 09/07/20 15:11 [place] # (Auto) 0.6 K/mm3 (0.0-0.8) 09/07/20 15:11 Eos # (Auto) 0.2 K/mm3 (0.0-0.4) 09/07/20 15:11 Baso # (Auto) 0.1 K/mm3 (0.0-0.1) 09/07/20 15:11 Seg Neutrophils % 64.9 % (40.0-70.0) 09/07/20 15:11 Seg Neutrophils # 5.9 K/mm3 (1.8-7.7) 09/07/20 15:11 Sodium 137 mmol/L (137-145) 09/07/20 15:11 Potassium 4.0 mmol/L (3.6-5.0) 09/07/20 15:11 Chloride 98.8 mmol/L (98-107) 09/07/20 15:11 Carbon Dioxide 22 mmol/L (22-30) 09/07/20 15:11 Anion Gap 20 mmol/L 09/07/20 15:11 BUN 15 mg/dL (9-20) 09/07/20 15:11 Creatinine 0.5 mg/dL (0.8-1.3) L 09/07/20 15:11 Estimated GFR > 60 ml/min 09/07/20 15:11 BUN/Creatinine Ratio 30 % 09/07/20 15:11 Glucose 95 mg/dL (75-100) 09/07/20 15:11 POC Glucose 89 (70-105) 09/08/20 08:02 Hemoglobin A1c 5.2 % (4-6) 09/07/20 15:11 Calcium 9.5 mg/dL (8.4-10.2) 09/07/20 15:11 Total Bilirubin 0.20 mg/dL (0.1-1.2) 09/07/20 15:11 AST 16 units/L (5-40) 09/07/20 15:11 ALT 27 units/L (7-56) 09/07/20 15:11 Alkaline Phosphatase 170 units/L (35-129) H 09/07/20 15:11 Total Protein 7.3 g/dL (6.3-8.2) 09/07/20 15:11 Albumin 4.0 g/dL (3.9-5) 09/07/20 15:11 Albumin/Globulin Ratio 1.2 % 09/07/20 15:11 Triglycerides 150 mg/dL (2-149) H 09/07/20 15:11 Cholesterol 154 mg/dL (50-199) 09/07/20 15:11 LDL Cholesterol Direct 80 mg/dL (50-130) 09/07/20 15:11 HDL Cholesterol 59 mg/dL (40-59) 09/07/20 15:11 Cholesterol/HDL Ratio 2.61 % 09/07/20 15:11 TSH 0.845 mlU/mL (0.270-4.200) 09/07/20 15:11 Hepatitis A IgM Ab Non-reactive (NonReactive) 09/07/20 15:11 Hep Bs Antigen Non-reactive (Negative) 09/07/20 15:11 Hep B Core IgM Ab Non-reactive (NonReactive) 09/07/20 15:11 Hepatitis C Antibody Non-reactive (NonReactive) 09/07/20 15:11 Last Vital Signs Temp 98.7 F 09/10/20 22:00 Pulse 60 09/10/20 22:00 Resp 16 09/10/20 22:00 BP 100/64 09/10/20 22:00 Pulse Ox 96 09/10/20 22:00
[2020-09-11] MEDS: OMEGA-3 FATTY ACIDS/FISH OIL 1 GRAM CAP PO SCH ×2 (09:09→21:14)
[2020-09-11] MEDS: risperiDONE 1 MG TAB PO SCH ×2 (09:10→21:13)
[2020-09-11] MEDS: CETIRIZINE 10 MG TAB PO SCH (09:10)
[2020-09-11] MEDS: VALPROIC ACID 250 MG CAP PO SCH ×2 (09:10→21:14)
[2020-09-11] MEDS: PARoxetine 10 MG TAB PO SCH (09:57)
--- NOTE | 2020-09-11 11:11 | Progress Note ---
Hospitalist Physical - Constitutional Vitals: Temp Pulse Resp BP Pulse Ox 98.7 F 60 16 100/64 96 09/10/20 22:00 09/10/20 22:00 09/10/20 22:00 09/10/20 22:00 09/10/20 22:00 General appearance: Present: no acute distress, well-nourished Results - Labs CBC & Chem 7: 09/07/20 15:11 09/07/20 15:11 Labs: Laboratory Last Values WBC 9.1 K/mm3 (4.5-11.0) 09/07/20 15:11 RBC 5.01 M/mm3 (3.65-5.03) 09/07/20 15:11 Hgb 15.1 gm/dl (11.8-15.2) 09/07/20 15:11 Hct 45.4 % (35.5-45.6) 09/07/20 15:11 MCV 91 fl (84-94) 09/07/20 15:11 MCH 30 pg (28-32) 09/07/20 15:11 MCHC 33 % (32-34) 09/07/20 15:11 RDW 13.9 % (13.2-15.2) 09/07/20 15:11 Plt Count 362 K/mm3 (140-440) 09/07/20 15:11 Lymph % (Auto) 25.0 % (13.4-35.0) 09/07/20 15:11 [place] % (Auto) 6.3 % (0.0-7.3) 09/07/20 15:11 Eos % (Auto) 2.5 % (0.0-4.3) 09/07/20 15:11 Baso % (Auto) 1.3 % (0.0-1.8) 09/07/20 15:11 Lymph # (Auto) 2.3 K/mm3 (1.2-5.4) 09/07/20 15:11 [place] # (Auto) 0.6 K/mm3 (0.0-0.8) 09/07/20 15:11 Eos # (Auto) 0.2 K/mm3 (0.0-0.4) 09/07/20 15:11 Baso # (Auto) 0.1 K/mm3 (0.0-0.1) 09/07/20 15:11 Seg Neutrophils % 64.9 % (40.0-70.0) 09/07/20 15:11 Seg Neutrophils # 5.9 K/mm3 (1.8-7.7) 09/07/20 15:11 Sodium 137 mmol/L (137-145) 09/07/20 15:11 Potassium 4.0 mmol/L (3.6-5.0) 09/07/20 15:11 Chloride 98.8 mmol/L (98-107) 09/07/20 15:11 Carbon Dioxide 22 mmol/L (22-30) 09/07/20 15:11 Anion Gap 20 mmol/L 09/07/20 15:11 BUN 15 mg/dL (9-20) 09/07/20 15:11 Creatinine 0.5 mg/dL (0.8-1.3) L 09/07/20 15:11 Estimated GFR > 60 ml/min 09/07/20 15:11 BUN/Creatinine Ratio 30 % 09/07/20 15:11 Glucose 95 mg/dL (75-100) 09/07/20 15:11 POC Glucose 89 (70-105) 09/08/20 08:02 Hemoglobin A1c 5.2 % (4-6) 09/07/20 15:11 Calcium 9.5 mg/dL (8.4-10.2) 09/07/20 15:11 Total Bilirubin 0.20 mg/dL (0.1-1.2) 09/07/20 15:11 AST 16 units/L (5-40) 09/07/20 15:11 ALT 27 units/L (7-56) 09/07/20 15:11 Alkaline Phosphatase 170 units/L (35-129) H 09/07/20 15:11 Total Protein 7.3 g/dL (6.3-8.2) 09/07/20 15:11 Albumin 4.0 g/dL (3.9-5) 09/07/20 15:11 Albumin/Globulin Ratio 1.2 % 09/07/20 15:11 Triglycerides 150 mg/dL (2-149) H 09/07/20 15:11 Cholesterol 154 mg/dL (50-199) 09/07/20 15:11 LDL Cholesterol Direct 80 mg/dL (50-130) 09/07/20 15:11 HDL Cholesterol 59 mg/dL (40-59) 09/07/20 15:11 Cholesterol/HDL Ratio 2.61 % 09/07/20 15:11 TSH 0.845 mlU/mL (0.270-4.200) 09/07/20 15:11 Hepatitis A IgM Ab Non-reactive (NonReactive) 09/07/20 15:11 Hep Bs Antigen Non-reactive (Negative) 09/07/20 15:11 Hep B Core IgM Ab Non-reactive (NonReactive) 09/07/20 15:11 Hepatitis C Antibody Non-reactive (NonReactive) 09/07/20 15:11 Oneal/IV: Voiding Method Toilet Active Medications - Current Medications Current Medications: Generic Name Dose Route Start Last Admin Trade Name Freq PRN Reason Stop Dose Admin Cetirizine HCl 10 mg 09/07/20 10:00 09/11/20 09:10 Cetirizine PO 10 mg QDAY NICOLE Administration Diphenhydramine HCl 25 mg 09/10/20 08:14 Benadryl PO QHS PRN Itching Fish Oil 2,000 mg 09/05/20 22:00 09/11/20 09:09 Fish Oil PO 2,000 mg BID NICOLE Administration Melatonin 5 mg 09/05/20 16:55 09/09/20 21:20 Melatonin PO 5 mg QHS PRN Administration Sleep Paroxetine HCl 10 mg 09/06/20 10:00 09/11/20 09:57 Paxil PO 10 mg QDAY NICOLE Administration Risperidone 1 mg 09/09/20 22:00 09/11/20 09:10 Risperdal PO 1 mg BID NICOLE Administration Trazodone HCl 75 mg 09/10/20 22:00 09/10/20 21:15 Desyrel PO 75 mg QHS NICOLE Administration Valproic Acid 250 mg 09/06/20 10:00 09/11/20 09:10 Depakene PO 250 mg BID NICOLE Administration
[2020-09-11] MEDS: diphenhydrAMINE 25 MG CAP PO PRN (20:26)
[2020-09-11] MEDS: MELATONIN 5 MG TAB PO PRN (20:27)
[2020-09-11] MEDS: traZODone 50 MG TAB PO SCH (21:13)
[2020-09-12] MEDS: VALPROIC ACID 250 MG CAP PO SCH ×2 (10:24→21:19)
[2020-09-12] MEDS: CETIRIZINE 10 MG TAB PO SCH (10:24)
[2020-09-12] MEDS: risperiDONE 1 MG TAB PO SCH ×2 (10:24→21:16)
[2020-09-12] MEDS: OMEGA-3 FATTY ACIDS/FISH OIL 1 GRAM CAP PO SCH ×2 (10:24→21:13)
--- NOTE | 2020-09-12 12:08 | Progress Note ---
Subjective Date of service: 09/12/20 Principal diagnosis: (1) Schizoaffective disorder/Outbursts of explosive behavior Subjective Comment: The patient's medical record was reviewed and the patient's progress was discussed with the nursing staff. During my interview with the patient today, he is rolling in his wheelchair. The patient is pleasant. He is [employer]. The patient still complains of not sleeping well due to the itching. He denies SI/HI or hallucinations of any kind. Reason for continued inpatient admission: The patient appears to be at his baseline. Will continue to monitor his behavior, and plan for a safe discharge once social support is confirmed. EVIEW OF SYSTEMS Constitutional: Negative for weight loss ENT: Negative for stridor Respiratory: Negative for cough or hemoptysis All other systems reviewed and are negative MENTAL STATUS EXAMINATION General Appearance and Behavior: Age appropriate, wearing appropriate clothes, calm and cooperative. Polite Mood: "okay" Affect and affective range: congruent with mood Thought Process: goal directed Thought Content: None Speech: Normal volume, Regular rate and rhythm Suicidal Ideation: Denies Homicidal Ideation: Denies Hallucinations: Denies Delusions: None elicited Impulse Control: Unimpaired Insight and Judgment: Limited insight and judgment Memory/Cognition: Impaired Attention: Normal Orientation: Alert, oriented Assessment (1) Schizoaffective disorder Current Visit: Yes Status: Acute (2) Outbursts of explosive behavior Current Visit: Yes Status: Acute Treatment Plan Patient admitted for inpatient psychiatric evaluation, medication adjustment and close monitoring The patient's behavior, mood, sleep and appetite will be closely monitored. Patient enrolled in individual and group therapeutic sessions and encouraged to attend. Patient provided with a safe and structured environment. Patient's physical health needs will be addressed by the Hospitalist. Hospitalist Consulted Labs including CBC, CMP, Lipid profile and Hemoglobin A1C levels ordered for baseline reference Social Assessment will be completed and the Hose Tubing Backer will work with patient and family to ensure a suitable and safe disposition Medication adjustment will be made as clinically indicated No changes today Usual Wellness Bahai/Preservation: - Start Trazodone 50 mg po QHS & 50 mg po QHS PRN between 10 PM & 2 AM for insomnia - Start Melatonin 5 mg po QHS to promote circadian rhythm Estimated days: 3 Post hospital care: primary care provider, psychiatric provider Medications and Allergies Allergies Allergy/AdvReac Type Severity Reaction Status Date / Time No Known Allergies Allergy Unverified 09/04/20 19:43 Home Medications Medication Instructions Recorded Confirmed Last Taken Type Escitalopram [Lexapro] 10 mg PO DAILY 09/05/20 09/07/20 Unknown History Famotidine [Acid Controller] 20 mg PO BID 09/05/20 09/07/20 Unknown History HYDROcodone/ACETAMINOPHEN 5 - 325 mg PO PRN 09/05/20 09/07/20 Unknown History [Verdrocet 2.5-325 mg TAB] ISOSORBIDE MONOnitrate [Imdur ER] 30 mg PO DAILY 09/05/20 09/07/20 Unknown History Memantine [Namenda] 10 mg PO BID 09/05/20 09/07/20 Unknown History Pravastatin [Pravachol] 40 mg PO QHS 09/05/20 09/07/20 Unknown History Tamsulosin [Flomax] 0.4 mg PO QDAY 09/05/20 09/07/20 Unknown History amantadine [Symmetrel] 100 mg PO DAILY 09/05/20 09/07/20 Unknown History clonazePAM [ Klonopin] 0.5 mg PO DAILY PRN 09/05/20 09/07/20 Unknown History hydrOXYzine HCL [Atarax] 25 mg PO Q6HR PRN 09/05/20 09/07/20 Unknown History Multivitamin 1 tab PO DAILY 09/07/20 09/07/20 Unknown History Sennosides [Senna] 8.6 mg PO QPM 09/07/20 09/07/20 Unknown History Vitamin D3 50,000UNIT CAP 50,000 unit PO QWEEK 09/07/20 09/07/20 Unknown History Active Meds: Active Medications Cetirizine HCl (Cetirizine) 10 mg PO QDAY [facility] Last Admin: 09/12/20 10:24 Dose: 10 mg Documented by: Diphenhydramine HCl (Benadryl) 25 mg PO QHS PRN PRN Reason: Itching Last Admin: 09/11/20 20:26 Dose: 25 mg Documented by: Fish Oil (Fish Oil) 2,000 mg PO BID [facility] Last Admin: 09/12/20 10:24 Dose: 2,000 mg Documented by: Melatonin (Melatonin) 5 mg PO QHS PRN PRN Reason: Sleep Last Admin: 09/11/20 20:27 Dose: 5 mg Documented by: Paroxetine HCl (Paxil) 10 mg PO QDAY [facility] Last Admin: 09/11/20 09:57 Dose: 10 mg Documented by: Risperidone (Risperdal) 1 mg PO BID [facility] Last Admin: 09/12/20 10:24 Dose: 1 mg Documented by: Trazodone HCl (Desyrel) 75 mg PO QHS [facility] Last Admin: 09/11/20 21:13 Dose: 75 mg Documented by: Valproic Acid (Depakene) 250 mg PO BID [facility] Last Admin: 09/12/20 10:24 Dose: 250 mg Documented by: Results - Results Labs/Vitals: Laboratory Last Values WBC 9.1 K/mm3 (4.5-11.0) 09/07/20 15:11 RBC 5.01 M/mm3 (3.65-5.03) 09/07/20 15:11 Hgb 15.1 gm/dl (11.8-15.2) 09/07/20 15:11 Hct 45.4 % (35.5-45.6) 09/07/20 15:11 MCV 91 fl (84-94) 09/07/20 15:11 MCH 30 pg (28-32) 09/07/20 15:11 MCHC 33 % (32-34) 09/07/20 15:11 RDW 13.9 % (13.2-15.2) 09/07/20 15:11 Plt Count 362 K/mm3 (140-440) 09/07/20 15:11 Lymph % (Auto) 25.0 % (13.4-35.0) 09/07/20 15:11 [place] % (Auto) 6.3 % (0.0-7.3) 09/07/20 15:11 Eos % (Auto) 2.5 % (0.0-4.3) 09/07/20 15:11 Baso % (Auto) 1.3 % (0.0-1.8) 09/07/20 15:11 Lymph # (Auto) 2.3 K/mm3 (1.2-5.4) 09/07/20 15:11 [place] # (Auto) 0.6 K/mm3 (0.0-0.8) 09/07/20 15:11 Eos # (Auto) 0.2 K/mm3 (0.0-0.4) 09/07/20 15:11 Baso # (Auto) 0.1 K/mm3 (0.0-0.1) 09/07/20 15:11 Seg Neutrophils % 64.9 % (40.0-70.0) 09/07/20 15:11 Seg Neutrophils # 5.9 K/mm3 (1.8-7.7) 09/07/20 15:11 Sodium 137 mmol/L (137-145) 09/07/20 15:11 Potassium 4.0 mmol/L (3.6-5.0) 09/07/20 15:11 Chloride 98.8 mmol/L (98-107) 09/07/20 15:11 Carbon Dioxide 22 mmol/L (22-30) 09/07/20 15:11 Anion Gap 20 mmol/L 09/07/20 15:11 BUN 15 mg/dL (9-20) 09/07/20 15:11 Creatinine 0.5 mg/dL (0.8-1.3) L 09/07/20 15:11 Estimated GFR > 60 ml/min 09/07/20 15:11 BUN/Creatinine Ratio 30 % 09/07/20 15:11 Glucose 95 mg/dL (75-100) 09/07/20 15:11 POC Glucose 89 (70-105) 09/08/20 08:02 Hemoglobin A1c 5.2 % (4-6) 09/07/20 15:11 Calcium 9.5 mg/dL (8.4-10.2) 09/07/20 15:11 Total Bilirubin 0.20 mg/dL (0.1-1.2) 09/07/20 15:11 AST 16 units/L (5-40) 09/07/20 15:11 ALT 27 units/L (7-56) 09/07/20 15:11 Alkaline Phosphatase 170 units/L (35-129) H 09/07/20 15:11 Total Protein 7.3 g/dL (6.3-8.2) 09/07/20 15:11 Albumin 4.0 g/dL (3.9-5) 09/07/20 15:11 Albumin/Globulin Ratio 1.2 % 09/07/20 15:11 Triglycerides 150 mg/dL (2-149) H 09/07/20 15:11 Cholesterol 154 mg/dL (50-199) 09/07/20 15:11 LDL Cholesterol Direct 80 mg/dL (50-130) 09/07/20 15:11 HDL Cholesterol 59 mg/dL (40-59) 09/07/20 15:11 Cholesterol/HDL Ratio 2.61 % 09/07/20 15:11 TSH 0.845 mlU/mL (0.270-4.200) 09/07/20 15:11 Hepatitis A IgM Ab Non-reactive (NonReactive) 09/07/20 15:11 Hep Bs Antigen Non-reactive (Negative) 09/07/20 15:11 Hep B Core IgM Ab Non-reactive (NonReactive) 09/07/20 15:11 Hepatitis C Antibody Non-reactive (NonReactive) 09/07/20 15:11 Last Vital Signs Temp 98.8 F 09/12/20 09:04 Pulse 66 09/12/20 09:04 Resp 18 09/12/20 09:04 BP 104/56 09/12/20 09:04 Pulse Ox 95 09/12/20 09:04
[2020-09-12] MEDS: PARoxetine 10 MG TAB PO SCH (18:44)
[2020-09-12] MEDS: traZODone 50 MG TAB PO SCH (21:14)
--- NOTE | 2020-09-13 07:26 | Progress Note ---
Subjective Date of service: 09/13/20 Principal diagnosis: (1) Schizoaffective disorder/Outbursts of explosive behavior Subjective Comment: Per Psych Nurse: Last evening the patient smiled often. He is still unable to give much information and continues to answer all questions with yes. His affect is content. He denies si/hi/ah/vh. Overnight the patient rested quietly. He presents as sleeping 8 hours. Will continue to monitor patient for safety. Psych Progress Patient seen this a.m. reports doing good denies having any abnormal thought disorders patient reported as normal to go back to his family because he thinks they do not take good care of him otherwise patient has had no behavioral issues reported by the nurses. Reason for continuing inpatient psychiatric hospitalization: Patient is pending safe discharge EVIEW OF SYSTEMS Constitutional: Negative for weight loss ENT: Negative for stridor Respiratory: Negative for cough or hemoptysis All other systems reviewed and are negative MENTAL STATUS EXAMINATION General Appearance and Behavior: Age appropriate, good hygiene, wearing appropriate clothes, , good eye contact, cooperative with questioning. Cooperation: Participating/engaged Psychomotor Behavior: unremarkable and within normal limits Mood: Good Affect and affective range: congruent with mood Thought Process: Fluent/Logical, Thought Content: Within reality Speech: confused, pressured, loud volume Intellectual Functioning: Average Suicidal Ideation: denies Homicidal Ideation: Denies HI Impulse Control: Impaired Insight and Judgment: Limited insight and judgment Memory: Prospective memory impaired Attention: Normal Orientation: Alert, oriented Assessment and Plan - Psychiatric problem (1) Schizoaffective disorder Current Visit: Yes Status: Acute (2) Outbursts of explosive behavior Current Visit: Yes Status: Acute Treatment Plan Continue current medic Patient admitted for inpatient psychiatric evaluation, medication adjustment and close monitoring The patient's behavior, mood, sleep and appetite will be closely monitored. Patient enrolled in individual and group therapeutic sessions and encouraged to attend. Patient provided with a safe and structured environment. Patient's physical health needs will be addressed by the Hospitalist. Hospitalist Consulted Labs including CBC, CMP, Lipid profile and Hemoglobin A1C levels ordered for baseline reference Social Assessment will be completed and the Angle Shear Set Up Operator will work with patient and family to ensure a suitable and safe disposition Medication adjustment will be made as clinically indicated Usual Wellness Mandaeism/Preservation: - Start Trazodone 50 mg po QHS & 50 mg po QHS PRN between 10 PM & 2 AM for insomnia - Start Melatonin 5 mg po QHS to promote circadian rhythm - Start [place]-3 for brain health, reduce impulsivity, and as adjunctive treatment for mood disorder, continue upon discharge given overall benefits. - Start B1 prophylaxis with 200 mg po for 5 days The patient agreed on the treatment plan, understood the risk, benefit, alternative treatment, potential consequence of no treatment, and gave informed consent. Initial Certification Inpatient psych services: I certify that the inpatient psychiatric services are required for treatment that could reasonably be expected to improve the patient's condition. Estimated days: 5 Post hospital care: primary care provider, psychiatric provider Medications and Allergies Allergies Allergy/AdvReac Type Severity Reaction Status Date / Time No Known Allergies Allergy Unverified 09/04/20 19:43 Home Medications Medication Instructions Recorded Confirmed Last Taken Type Escitalopram [Lexapro] 10 mg PO DAILY 09/05/20 09/07/20 Unknown History Famotidine [Acid Controller] 20 mg PO BID 09/05/20 09/07/20 Unknown History HYDROcodone/ACETAMINOPHEN 5 - 325 mg PO PRN 09/05/20 09/07/20 Unknown History [Verdrocet 2.5-325 mg TAB] ISOSORBIDE MONOnitrate [Imdur ER] 30 mg PO DAILY 09/05/20 09/07/20 Unknown History Memantine [Namenda] 10 mg PO BID 09/05/20 09/07/20 Unknown History Pravastatin [Pravachol] 40 mg PO QHS 09/05/20 09/07/20 Unknown History Tamsulosin [Flomax] 0.4 mg PO QDAY 09/05/20 09/07/20 Unknown History amantadine [Symmetrel] 100 mg PO DAILY 09/05/20 09/07/20 Unknown History clonazePAM [ Klonopin] 0.5 mg PO DAILY PRN 09/05/20 09/07/20 Unknown History hydrOXYzine HCL [Atarax] 25 mg PO Q6HR PRN 09/05/20 09/07/20 Unknown History Multivitamin 1 tab PO DAILY 09/07/20 09/07/20 Unknown History Sennosides [Senna] 8.6 mg PO QPM 09/07/20 09/07/20 Unknown History Vitamin D3 50,000UNIT CAP 50,000 unit PO QWEEK 09/07/20 09/07/20 Unknown History Active Meds: Active Medications Cetirizine HCl (Cetirizine) 10 mg PO QDAY [facility] Last Admin: 09/12/20 10:24 Dose: 10 mg Documented by: Diphenhydramine HCl (Benadryl) 25 mg PO QHS PRN PRN Reason: Itching Last Admin: 09/11/20 20:26 Dose: 25 mg Documented by: Fish Oil (Fish Oil) 2,000 mg PO BID [facility] Last Admin: 09/12/20 21:13 Dose: 2,000 mg Documented by: Melatonin (Melatonin) 5 mg PO QHS PRN PRN Reason: Sleep Last Admin: 09/11/20 20:27 Dose: 5 mg Documented by: Paroxetine HCl (Paxil) 10 mg PO QDAY [facility] Last Admin: 09/12/20 18:44 Dose: 10 mg Documented by: Risperidone (Risperdal) 1 mg PO BID [facility] Last Admin: 09/12/20 21:16 Dose: 1 mg Documented by: Trazodone HCl (Desyrel) 75 mg PO QHS [facility] Last Admin: 09/12/20 21:14 Dose: 75 mg Documented by: Valproic Acid (Depakene) 250 mg PO BID [facility] Last Admin: 09/12/20 21:19 Dose: 250 mg Documented by: Results - Results Labs/Vitals: Laboratory Last Values WBC 9.1 K/mm3 (4.5-11.0) 09/07/20 15:11 RBC 5.01 M/mm3 (3.65-5.03) 09/07/20 15:11 Hgb 15.1 gm/dl (11.8-15.2) 09/07/20 15:11 Hct 45.4 % (35.5-45.6) 09/07/20 15:11 MCV 91 fl (84-94) 09/07/20 15:11 MCH 30 pg (28-32) 09/07/20 15:11 MCHC 33 % (32-34) 09/07/20 15:11 RDW 13.9 % (13.2-15.2) 09/07/20 15:11 Plt Count 362 K/mm3 (140-440) 09/07/20 15:11 Lymph % (Auto) 25.0 % (13.4-35.0) 09/07/20 15:11 [place] % (Auto) 6.3 % (0.0-7.3) 09/07/20 15:11 Eos % (Auto) 2.5 % (0.0-4.3) 09/07/20 15:11 Baso % (Auto) 1.3 % (0.0-1.8) 09/07/20 15:11 Lymph # (Auto) 2.3 K/mm3 (1.2-5.4) 09/07/20 15:11 [place] # (Auto) 0.6 K/mm3 (0.0-0.8) 09/07/20 15:11 Eos # (Auto) 0.2 K/mm3 (0.0-0.4) 09/07/20 15:11 Baso # (Auto) 0.1 K/mm3 (0.0-0.1) 09/07/20 15:11 Seg Neutrophils % 64.9 % (40.0-70.0) 09/07/20 15:11 Seg Neutrophils # 5.9 K/mm3 (1.8-7.7) 09/07/20 15:11 Sodium 137 mmol/L (137-145) 09/07/20 15:11 Potassium 4.0 mmol/L (3.6-5.0) 09/07/20 15:11 Chloride 98.8 mmol/L (98-107) 09/07/20 15:11 Carbon Dioxide 22 mmol/L (22-30) 09/07/20 15:11 Anion Gap 20 mmol/L 09/07/20 15:11 BUN 15 mg/dL (9-20) 09/07/20 15:11 Creatinine 0.5 mg/dL (0.8-1.3) L 09/07/20 15:11 Estimated GFR > 60 ml/min 09/07/20 15:11 BUN/Creatinine Ratio 30 % 09/07/20 15:11 Glucose 95 mg/dL (75-100) 09/07/20 15:11 POC Glucose 89 (70-105) 09/08/20 08:02 Hemoglobin A1c 5.2 % (4-6) 09/07/20 15:11 Calcium 9.5 mg/dL (8.4-10.2) 09/07/20 15:11 Total Bilirubin 0.20 mg/dL (0.1-1.2) 09/07/20 15:11 AST 16 units/L (5-40) 09/07/20 15:11 ALT 27 units/L (7-56) 09/07/20 15:11 Alkaline Phosphatase 170 units/L (35-129) H 09/07/20 15:11 Total Protein 7.3 g/dL (6.3-8.2) 09/07/20 15:11 Albumin 4.0 g/dL (3.9-5) 09/07/20 15:11 Albumin/Globulin Ratio 1.2 % 09/07/20 15:11 Triglycerides 150 mg/dL (2-149) H 09/07/20 15:11 Cholesterol 154 mg/dL (50-199) 09/07/20 15:11 LDL Cholesterol Direct 80 mg/dL (50-130) 09/07/20 15:11 HDL Cholesterol 59 mg/dL (40-59) 09/07/20 15:11 Cholesterol/HDL Ratio 2.61 % 09/07/20 15:11 TSH 0.845 mlU/mL (0.270-4.200) 09/07/20 15:11 Hepatitis A IgM Ab Non-reactive (NonReactive) 09/07/20 15:11 Hep Bs Antigen Non-reactive (Negative) 09/07/20 15:11 Hep B Core IgM Ab Non-reactive (NonReactive) 09/07/20 15:11 Hepatitis C Antibody Non-reactive (NonReactive) 09/07/20 15:11 Last Vital Signs Temp 99.0 F 09/12/20 20:36 Pulse 64 09/12/20 19:05 Resp 18 09/12/20 20:36 BP 128/69 09/12/20 19:05 Pulse Ox 94 09/12/20 19:05
[2020-09-13] MEDS: VALPROIC ACID 250 MG CAP PO SCH ×2 (10:00→21:17)
[2020-09-13] MEDS: OMEGA-3 FATTY ACIDS/FISH OIL 1 GRAM CAP PO SCH ×2 (10:00→21:17)
[2020-09-13] MEDS: CETIRIZINE 10 MG TAB PO SCH (10:00)
[2020-09-13] MEDS: PARoxetine 10 MG TAB PO SCH (10:00)
[2020-09-13] MEDS: risperiDONE 1 MG TAB PO SCH ×2 (10:01→21:17)
[2020-09-13] MEDS: traZODone 50 MG TAB PO SCH (21:17)
[2020-09-14] MEDS: risperiDONE 1 MG TAB PO SCH ×2 (09:29→21:32)
[2020-09-14] MEDS: OMEGA-3 FATTY ACIDS/FISH OIL 1 GRAM CAP PO SCH ×2 (09:29→21:32)
[2020-09-14] MEDS: CETIRIZINE 10 MG TAB PO SCH (09:29)
[2020-09-14] MEDS: PARoxetine 10 MG TAB PO SCH (09:29)
[2020-09-14] MEDS: VALPROIC ACID 250 MG CAP PO SCH ×2 (09:29→21:33)
--- NOTE | 2020-09-14 09:31 | Progress Note ---
Subjective Date of service: 09/14/20 Principal diagnosis: (1) Schizoaffective disorder/Outbursts of explosive behavior Subjective Comment: Per Psych Nurse: pt received in dayroom pleasant, A&O to person, place and situation. Pt denies SI/HI and AVH. Close monitoring continues Psych Progress Patient has history of cognitive impairement/dementia, pending safety discharge. reports doing fine today, denies having any complaints but says his back hurts and would like something for pain. Denies SI, HI and no observed mood irritablity. Reason for continuing inpatient psychiatric hospitalization: Patient is pending safe discharge EVIEW OF SYSTEMS Constitutional: Negative for weight loss ENT: Negative for stridor Respiratory: Negative for cough or hemoptysis All other systems reviewed and are negative MENTAL STATUS EXAMINATION General Appearance and Behavior: Age appropriate, good hygiene, wearing appropriate clothes, , good eye contact, cooperative with questioning. Cooperation: Participating/engaged Psychomotor Behavior: unremarkable and within normal limits Mood: Good Affect and affective range: congruent with mood Thought Process: Fluent/Logical, Thought Content: Within reality Speech: confused, pressured, loud volume Intellectual Functioning: Average Suicidal Ideation: denies Homicidal Ideation: Denies HI Impulse Control: Impaired Insight and Judgment: Limited insight and judgment Memory: Prospective memory impaired Attention: Normal Orientation: Alert, oriented Assessment and Plan - Psychiatric problem (1) Schizoaffective disorder Current Visit: Yes Status: Acute (2) Outbursts of explosive behavior Current Visit: Yes Status: Acute Treatment Plan Continue current medic Patient admitted for inpatient psychiatric evaluation, medication adjustment and close monitoring The patient's behavior, mood, sleep and appetite will be closely monitored. Patient enrolled in individual and group therapeutic sessions and encouraged to attend. Patient provided with a safe and structured environment. Patient's physical health needs will be addressed by the Hospitalist. Hospitalist Consulted Labs including CBC, CMP, Lipid profile and Hemoglobin A1C levels ordered for baseline reference Social Assessment will be completed and the Automobile Contract Clerk will work with patient and family to ensure a suitable and safe disposition Medication adjustment will be made as clinically indicated Usual Wellness Hindu/Preservation: - Start Trazodone 50 mg po QHS & 50 mg po QHS PRN between 10 PM & 2 AM for insomnia - Start Melatonin 5 mg po QHS to promote circadian rhythm - Start [place]-3 for brain health, reduce impulsivity, and as adjunctive treatment for mood disorder, continue upon discharge given overall benefits. - Start B1 prophylaxis with 200 mg po for 5 days The patient agreed on the treatment plan, understood the risk, benefit, alternative treatment, potential consequence of no treatment, and gave informed consent. Initial Certification Inpatient psych services: I certify that the inpatient psychiatric services are required for treatment that could reasonably be expected to improve the patient's condition. Estimated days: 5 Post hospital care: primary care provider, psychiatric provider Medications and Allergies Allergies Allergy/AdvReac Type Severity Reaction Status Date / Time No Known Allergies Allergy Unverified 09/04/20 19:43 Home Medications Medication Instructions Recorded Confirmed Last Taken Type Escitalopram [Lexapro] 10 mg PO DAILY 09/05/20 09/07/20 Unknown History Famotidine [Acid Controller] 20 mg PO BID 09/05/20 09/07/20 Unknown History HYDROcodone/ACETAMINOPHEN 5 - 325 mg PO PRN 09/05/20 09/07/20 Unknown History [Verdrocet 2.5-325 mg TAB] ISOSORBIDE MONOnitrate [Imdur ER] 30 mg PO DAILY 09/05/20 09/07/20 Unknown History Memantine [Namenda] 10 mg PO BID 09/05/20 09/07/20 Unknown History Pravastatin [Pravachol] 40 mg PO QHS 09/05/20 09/07/20 Unknown History Tamsulosin [Flomax] 0.4 mg PO QDAY 09/05/20 09/07/20 Unknown History amantadine [Symmetrel] 100 mg PO DAILY 09/05/20 09/07/20 Unknown History clonazePAM [ Klonopin] 0.5 mg PO DAILY PRN 09/05/20 09/07/20 Unknown History hydrOXYzine HCL [Atarax] 25 mg PO Q6HR PRN 09/05/20 09/07/20 Unknown History Multivitamin 1 tab PO DAILY 09/07/20 09/07/20 Unknown History Sennosides [Senna] 8.6 mg PO QPM 09/07/20 09/07/20 Unknown History Vitamin D3 50,000UNIT CAP 50,000 unit PO QWEEK 09/07/20 09/07/20 Unknown History Active Meds: Active Medications Cetirizine HCl (Cetirizine) 10 mg PO QDAY [facility] Last Admin: 09/14/20 09:29 Dose: 10 mg Documented by: Diphenhydramine HCl (Benadryl) 25 mg PO QHS PRN PRN Reason: Itching Last Admin: 09/11/20 20:26 Dose: 25 mg Documented by: Fish Oil (Fish Oil) 2,000 mg PO BID [facility] Last Admin: 09/14/20 09:29 Dose: 2,000 mg Documented by: Melatonin (Melatonin) 5 mg PO QHS PRN PRN Reason: Sleep Last Admin: 09/11/20 20:27 Dose: 5 mg Documented by: Paroxetine HCl (Paxil) 10 mg PO QDAY [facility] Last Admin: 09/14/20 09:29 Dose: 10 mg Documented by: Risperidone (Risperdal) 1 mg PO BID [facility] Last Admin: 09/14/20 09:29 Dose: 1 mg Documented by: Trazodone HCl (Desyrel) 75 mg PO QHS [facility] Last Admin: 09/13/20 21:17 Dose: 75 mg Documented by: Valproic Acid (Depakene) 250 mg PO BID [facility] Last Admin: 09/14/20 09:29 Dose: 250 mg Documented by: Results - Results Labs/Vitals: Laboratory Last Values WBC 9.1 K/mm3 (4.5-11.0) 09/07/20 15:11 RBC 5.01 M/mm3 (3.65-5.03) 09/07/20 15:11 Hgb 15.1 gm/dl (11.8-15.2) 09/07/20 15:11 Hct 45.4 % (35.5-45.6) 09/07/20 15:11 MCV 91 fl (84-94) 09/07/20 15:11 MCH 30 pg (28-32) 09/07/20 15:11 MCHC 33 % (32-34) 09/07/20 15:11 RDW 13.9 % (13.2-15.2) 09/07/20 15:11 Plt Count 362 K/mm3 (140-440) 09/07/20 15:11 Lymph % (Auto) 25.0 % (13.4-35.0) 09/07/20 15:11 [place] % (Auto) 6.3 % (0.0-7.3) 09/07/20 15:11 Eos % (Auto) 2.5 % (0.0-4.3) 09/07/20 15:11 Baso % (Auto) 1.3 % (0.0-1.8) 09/07/20 15:11 Lymph # (Auto) 2.3 K/mm3 (1.2-5.4) 09/07/20 15:11 [place] # (Auto) 0.6 K/mm3 (0.0-0.8) 09/07/20 15:11 Eos # (Auto) 0.2 K/mm3 (0.0-0.4) 09/07/20 15:11 Baso # (Auto) 0.1 K/mm3 (0.0-0.1) 09/07/20 15:11 Seg Neutrophils % 64.9 % (40.0-70.0) 09/07/20 15:11 Seg Neutrophils # 5.9 K/mm3 (1.8-7.7) 09/07/20 15:11 Sodium 137 mmol/L (137-145) 09/07/20 15:11 Potassium 4.0 mmol/L (3.6-5.0) 09/07/20 15:11 Chloride 98.8 mmol/L (98-107) 09/07/20 15:11 Carbon Dioxide 22 mmol/L (22-30) 09/07/20 15:11 Anion Gap 20 mmol/L 09/07/20 15:11 BUN 15 mg/dL (9-20) 09/07/20 15:11 Creatinine 0.5 mg/dL (0.8-1.3) L 09/07/20 15:11 Estimated GFR > 60 ml/min 09/07/20 15:11 BUN/Creatinine Ratio 30 % 09/07/20 15:11 Glucose 95 mg/dL (75-100) 09/07/20 15:11 POC Glucose 89 (70-105) 09/08/20 08:02 Hemoglobin A1c 5.2 % (4-6) 09/07/20 15:11 Calcium 9.5 mg/dL (8.4-10.2) 09/07/20 15:11 Total Bilirubin 0.20 mg/dL (0.1-1.2) 09/07/20 15:11 AST 16 units/L (5-40) 09/07/20 15:11 ALT 27 units/L (7-56) 09/07/20 15:11 Alkaline Phosphatase 170 units/L (35-129) H 09/07/20 15:11 Total Protein 7.3 g/dL (6.3-8.2) 09/07/20 15:11 Albumin 4.0 g/dL (3.9-5) 09/07/20 15:11 Albumin/Globulin Ratio 1.2 % 09/07/20 15:11 Triglycerides 150 mg/dL (2-149) H 09/07/20 15:11 Cholesterol 154 mg/dL (50-199) 09/07/20 15:11 LDL Cholesterol Direct 80 mg/dL (50-130) 09/07/20 15:11 HDL Cholesterol 59 mg/dL (40-59) 09/07/20 15:11 Cholesterol/HDL Ratio 2.61 % 09/07/20 15:11 TSH 0.845 mlU/mL (0.270-4.200) 09/07/20 15:11 Hepatitis A IgM Ab Non-reactive (NonReactive) 09/07/20 15:11 Hep Bs Antigen Non-reactive (Negative) 09/07/20 15:11 Hep B Core IgM Ab Non-reactive (NonReactive) 09/07/20 15:11 Hepatitis C Antibody Non-reactive (NonReactive) 09/07/20 15:11 Last Vital Signs Temp 98.1 F 09/14/20 08:35 Pulse 61 09/14/20 08:35 Resp 16 09/14/20 08:35 BP 87/54 09/14/20 08:35 Pulse Ox 96 09/14/20 08:35
[2020-09-14] MEDS: traZODone 50 MG TAB PO SCH (21:32)
[2020-09-15] MEDS: diphenhydrAMINE 25 MG CAP PO PRN (02:42)
[2020-09-15] MEDS: PARoxetine 10 MG TAB PO SCH (09:18)
[2020-09-15] MEDS: risperiDONE 1 MG TAB PO SCH ×2 (09:18→21:07)
[2020-09-15] MEDS: CETIRIZINE 10 MG TAB PO SCH (09:18)
[2020-09-15] MEDS: OMEGA-3 FATTY ACIDS/FISH OIL 1 GRAM CAP PO SCH ×2 (09:18→21:07)
[2020-09-15] MEDS: VALPROIC ACID 250 MG CAP PO SCH ×2 (09:18→21:06)
--- NOTE | 2020-09-15 09:26 | Progress Note ---
Subjective Date of service: 09/15/20 Principal diagnosis: (1) Schizoaffective disorder/Outbursts of explosive behavior Subjective Comment: Per Psych Nurse: Received patient in dayroom up in wheelchair, he alert oriented x2, respond to greeting by staff, no distress noted. Voiced no compliant at present. Will continue to monitor. Psych Progress Patient seen in room, praying this AM, thanking God for his life. Patient then finished prayer, said hi to me, was smiley and complaints of itchy sensation and back ache asking for pain meds. Reason for continuing inpatient psychiatric hospitalization: Patient is pending safe discharge EVIEW OF SYSTEMS Constitutional: Negative for weight loss ENT: Negative for stridor Respiratory: Negative for cough or hemoptysis All other systems reviewed and are negative MENTAL STATUS EXAMINATION General Appearance and Behavior: Age appropriate, good hygiene, wearing appropriate clothes, , good eye contact, cooperative with questioning. Cooperation: Participating/engaged Psychomotor Behavior: unremarkable and within normal limits Mood: Good Affect and affective range: congruent with mood Thought Process: Fluent/Logical, Thought Content: Within reality Speech: confused, pressured, loud volume Intellectual Functioning: Average Suicidal Ideation: denies Homicidal Ideation: Denies HI Impulse Control: Impaired Insight and Judgment: Limited insight and judgment Memory: Prospective memory impaired Attention: Normal Orientation: Alert, oriented Assessment and Plan - Psychiatric problem (1) Schizoaffective disorder Current Visit: Yes Status: Acute (2) Outbursts of explosive behavior Current Visit: Yes Status: Acute Treatment Plan Continue current medic Patient admitted for inpatient psychiatric evaluation, medication adjustment and close monitoring The patient's behavior, mood, sleep and appetite will be closely monitored. Patient enrolled in individual and group therapeutic sessions and encouraged to attend. Patient provided with a safe and structured environment. Patient's physical health needs will be addressed by the Hospitalist. Hospitalist Consulted Labs including CBC, CMP, Lipid profile and Hemoglobin A1C levels ordered for baseline reference Social Assessment will be completed and the Electronics Mechanic will work with patient and family to ensure a suitable and safe disposition Medication adjustment will be made as clinically indicated Usual Wellness Caodaism/Preservation: - Start Trazodone 50 mg po QHS & 50 mg po QHS PRN between 10 PM & 2 AM for insomnia - Start Melatonin 5 mg po QHS to promote circadian rhythm - Start [place]-3 for brain health, reduce impulsivity, and as adjunctive treatment for mood disorder, continue upon discharge given overall benefits. - Start B1 prophylaxis with 200 mg po for 5 days The patient agreed on the treatment plan, understood the risk, benefit, alternative treatment, potential consequence of no treatment, and gave informed consent. Initial Certification Inpatient psych services: I certify that the inpatient psychiatric services are required for treatment that could reasonably be expected to improve the patient's condition. Estimated days: 5 Post hospital care: primary care provider, psychiatric provider Medications and Allergies Allergies Allergy/AdvReac Type Severity Reaction Status Date / Time No Known Allergies Allergy Unverified 09/04/20 19:43 Home Medications Medication Instructions Recorded Confirmed Last Taken Type Escitalopram [Lexapro] 10 mg PO DAILY 09/05/20 09/07/20 Unknown History Famotidine [Acid Controller] 20 mg PO BID 09/05/20 09/07/20 Unknown History HYDROcodone/ACETAMINOPHEN 5 - 325 mg PO PRN 09/05/20 09/07/20 Unknown History [Verdrocet 2.5-325 mg TAB] ISOSORBIDE MONOnitrate [Imdur ER] 30 mg PO DAILY 09/05/20 09/07/20 Unknown History Memantine [Namenda] 10 mg PO BID 09/05/20 09/07/20 Unknown History Pravastatin [Pravachol] 40 mg PO QHS 09/05/20 09/07/20 Unknown History Tamsulosin [Flomax] 0.4 mg PO QDAY 09/05/20 09/07/20 Unknown History amantadine [Symmetrel] 100 mg PO DAILY 09/05/20 09/07/20 Unknown History clonazePAM [ Klonopin] 0.5 mg PO DAILY PRN 09/05/20 09/07/20 Unknown History hydrOXYzine HCL [Atarax] 25 mg PO Q6HR PRN 09/05/20 09/07/20 Unknown History Multivitamin 1 tab PO DAILY 09/07/20 09/07/20 Unknown History Sennosides [Senna] 8.6 mg PO QPM 09/07/20 09/07/20 Unknown History Vitamin D3 50,000UNIT CAP 50,000 unit PO QWEEK 09/07/20 09/07/20 Unknown History Active Meds: Active Medications Cetirizine HCl (Cetirizine) 10 mg PO QDAY NICOLE Last Admin: 09/15/20 09:18 Dose: 10 mg Documented by: Diphenhydramine HCl (Benadryl) 25 mg PO QHS PRN PRN Reason: Itching Last Admin: 09/15/20 02:42 Dose: 25 mg Documented by: Fish Oil (Fish Oil) 2,000 mg PO BID [facility] Last Admin: 09/15/20 09:18 Dose: 2,000 mg Documented by: Melatonin (Melatonin) 5 mg PO QHS PRN PRN Reason: Sleep Last Admin: 09/11/20 20:27 Dose: 5 mg Documented by: Paroxetine HCl (Paxil) 10 mg PO QDAY [facility] Last Admin: 09/15/20 09:18 Dose: 10 mg Documented by: Risperidone (Risperdal) 1 mg PO BID [facility] Last Admin: 09/15/20 09:18 Dose: 1 mg Documented by: Trazodone HCl (Desyrel) 75 mg PO QHS [facility] Last Admin: 09/14/20 21:32 Dose: 75 mg Documented by: Valproic Acid (Depakene) 250 mg PO BID [facility] Last Admin: 09/15/20 09:18 Dose: 250 mg Documented by: Results - Results Labs/Vitals: Laboratory Last Values WBC 9.1 K/mm3 (4.5-11.0) 09/07/20 15:11 RBC 5.01 M/mm3 (3.65-5.03) 09/07/20 15:11 Hgb 15.1 gm/dl (11.8-15.2) 09/07/20 15:11 Hct 45.4 % (35.5-45.6) 09/07/20 15:11 MCV 91 fl (84-94) 09/07/20 15:11 MCH 30 pg (28-32) 09/07/20 15:11 MCHC 33 % (32-34) 09/07/20 15:11 RDW 13.9 % (13.2-15.2) 09/07/20 15:11 Plt Count 362 K/mm3 (140-440) 09/07/20 15:11 Lymph % (Auto) 25.0 % (13.4-35.0) 09/07/20 15:11 [place] % (Auto) 6.3 % (0.0-7.3) 09/07/20 15:11 Eos % (Auto) 2.5 % (0.0-4.3) 09/07/20 15:11 Baso % (Auto) 1.3 % (0.0-1.8) 09/07/20 15:11 Lymph # (Auto) 2.3 K/mm3 (1.2-5.4) 09/07/20 15:11 [place] # (Auto) 0.6 K/mm3 (0.0-0.8) 09/07/20 15:11 Eos # (Auto) 0.2 K/mm3 (0.0-0.4) 09/07/20 15:11 Baso # (Auto) 0.1 K/mm3 (0.0-0.1) 09/07/20 15:11 Seg Neutrophils % 64.9 % (40.0-70.0) 09/07/20 15:11 Seg Neutrophils # 5.9 K/mm3 (1.8-7.7) 09/07/20 15:11 Sodium 137 mmol/L (137-145) 09/07/20 15:11 Potassium 4.0 mmol/L (3.6-5.0) 09/07/20 15:11 Chloride 98.8 mmol/L (98-107) 09/07/20 15:11 Carbon Dioxide 22 mmol/L (22-30) 09/07/20 15:11 Anion Gap 20 mmol/L 09/07/20 15:11 BUN 15 mg/dL (9-20) 09/07/20 15:11 Creatinine 0.5 mg/dL (0.8-1.3) L 09/07/20 15:11 Estimated GFR > 60 ml/min 09/07/20 15:11 BUN/Creatinine Ratio 30 % 09/07/20 15:11 Glucose 95 mg/dL (75-100) 09/07/20 15:11 POC Glucose 89 (70-105) 09/08/20 08:02 Hemoglobin A1c 5.2 % (4-6) 09/07/20 15:11 Calcium 9.5 mg/dL (8.4-10.2) 09/07/20 15:11 Total Bilirubin 0.20 mg/dL (0.1-1.2) 09/07/20 15:11 AST 16 units/L (5-40) 09/07/20 15:11 ALT 27 units/L (7-56) 09/07/20 15:11 Alkaline Phosphatase 170 units/L (35-129) H 09/07/20 15:11 Total Protein 7.3 g/dL (6.3-8.2) 09/07/20 15:11 Albumin 4.0 g/dL (3.9-5) 09/07/20 15:11 Albumin/Globulin Ratio 1.2 % 09/07/20 15:11 Triglycerides 150 mg/dL (2-149) H 09/07/20 15:11 Cholesterol 154 mg/dL (50-199) 09/07/20 15:11 LDL Cholesterol Direct 80 mg/dL (50-130) 09/07/20 15:11 HDL Cholesterol 59 mg/dL (40-59) 09/07/20 15:11 Cholesterol/HDL Ratio 2.61 % 09/07/20 15:11 TSH 0.845 mlU/mL (0.270-4.200) 09/07/20 15:11 Hepatitis A IgM Ab Non-reactive (NonReactive) 09/07/20 15:11 Hep Bs Antigen Non-reactive (Negative) 09/07/20 15:11 Hep B Core IgM Ab Non-reactive (NonReactive) 09/07/20 15:11 Hepatitis C Antibody Non-reactive (NonReactive) 09/07/20 15:11 Last Vital Signs Temp 97.7 F 09/15/20 07:46 Pulse 59 L 09/15/20 07:46 Resp 16 09/15/20 07:46 BP 106/68 09/15/20 07:46 Pulse Ox 98 09/15/20 07:46
[2020-09-15] MEDS ORDERED: ACETAMINOPHEN 325 MG TAB PO PRN (09:58)
[2020-09-15] MEDS: traZODone 50 MG TAB PO SCH (21:06)
--- NOTE | 2020-09-16 07:29 | Progress Note ---
Subjective Date of service: 09/16/20 Principal diagnosis: (1) Schizoaffective disorder/Outbursts of explosive behavior Subjective Comment: Per Psych Nurse: Pt received in the activity room interacting appropriately with peers. Denies pain, SI, or HI. No acute distress observed and none reported. Will continue to monitor. Psych Progress Patient seen this AM, reports doing good, complains of back ache says he has been getting tylenol but its not helping otherwise he is good. Reason for continuing inpatient psychiatric hospitalization: Patient is pending safe discharge EVIEW OF SYSTEMS Constitutional: Negative for weight loss ENT: Negative for stridor Respiratory: Negative for cough or hemoptysis All other systems reviewed and are negative MENTAL STATUS EXAMINATION General Appearance and Behavior: Age appropriate, good hygiene, wearing appropriate clothes, , good eye contact, cooperative with questioning. Cooperation: Participating/engaged Psychomotor Behavior: unremarkable and within normal limits Mood: Good Affect and affective range: congruent with mood Thought Process: Fluent/Logical, Thought Content: Within reality Speech: confused, pressured, loud volume Intellectual Functioning: Average Suicidal Ideation: denies Homicidal Ideation: Denies HI Impulse Control: Impaired Insight and Judgment: Limited insight and judgment Memory: Prospective memory impaired Attention: Normal Orientation: Alert, oriented Assessment and Plan - Psychiatric problem (1) Schizoaffective disorder Current Visit: Yes Status: Acute (2) Outbursts of explosive behavior Current Visit: Yes Status: Acute Treatment Plan Continue current medic Patient admitted for inpatient psychiatric evaluation, medication adjustment and close monitoring The patient's behavior, mood, sleep and appetite will be closely monitored. Patient enrolled in individual and group therapeutic sessions and encouraged to attend. Patient provided with a safe and structured environment. Patient's physical health needs will be addressed by the Hospitalist. Hospitalist Consulted Labs including CBC, CMP, Lipid profile and Hemoglobin A1C levels ordered for baseline reference Social Assessment will be completed and the Hardwood Finisher will work with patient and family to ensure a suitable and safe disposition Medication adjustment will be made as clinically indicated Usual Wellness Yazdanism/Preservation: - Start Trazodone 50 mg po QHS & 50 mg po QHS PRN between 10 PM & 2 AM for insomnia - Start Melatonin 5 mg po QHS to promote circadian rhythm - Start [place]-3 for brain health, reduce impulsivity, and as adjunctive poonam atment for mood disorder, continue upon discharge given overall benefits. - Start B1 prophylaxis with 200 mg po for 5 days The patient agreed on the treatment plan, understood the risk, benefit, alt ernative treatment, potential consequence of no treatment, and gave informed consent. Initial Certification Inpatient psych services: I certify that the inpatient psychiatric services are required for treatment that could reasonably be expected to improve the patient's condition. Estimated days: 1 Post hospital care: primary care provider, psychiatric provider Medications and Allergies Allergies Allergy/AdvReac Type Severity Reaction Status Date / Time No Known Allergies Allergy Unverified 09/04/20 19:43 Home Medications Medication Instructions Recorded Confirmed Last Taken Type Escitalopram [Lexapro] 10 mg PO DAILY 09/05/20 09/07/20 Unknown History Famotidine [Acid Controller] 20 mg PO BID 09/05/20 09/07/20 Unknown History HYDROcodone/ACETAMINOPHEN 5 - 325 mg PO PRN 09/05/20 09/07/20 Unknown History [Verdrocet 2.5-325 mg TAB] ISOSORBIDE MONOnitrate [Imdur ER] 30 mg PO DAILY 09/05/20 09/07/20 Unknown History Memantine [Namenda] 10 mg PO BID 09/05/20 09/07/20 Unknown History Pravastatin [Pravachol] 40 mg PO QHS 09/05/20 09/07/20 Unknown History Tamsulosin [Flomax] 0.4 mg PO QDAY 09/05/20 09/07/20 Unknown History amantadine [Symmetrel] 100 mg PO DAILY 09/05/20 09/07/20 Unknown History clonazePAM [ Klonopin] 0.5 mg PO DAILY PRN 09/05/20 09/07/20 Unknown History hydrOXYzine HCL [Atarax] 25 mg PO Q6HR PRN 09/05/20 09/07/20 Unknown History Multivitamin 1 tab PO DAILY 09/07/20 09/07/20 Unknown History Sennosides [Senna] 8.6 mg PO QPM 09/07/20 09/07/20 Unknown History Vitamin D3 50,000UNIT CAP 50,000 unit PO QWEEK 09/07/20 09/07/20 Unknown History Active Meds: Active Medications Acetaminophen (Tylenol) 650 mg PO Q4H PRN PRN Reason: Pain, Mild (1-3) Cetirizine HCl (Cetirizine) 10 mg PO QDAY NICOLE Last Admin: 09/15/20 09:18 Dose: 10 mg Documented by: Diphenhydramine HCl (Benadryl) 25 mg PO QHS PRN PRN Reason: Itching Last Admin: 09/15/20 02:42 Dose: 25 mg Documented by: Fish Oil (Fish Oil) 2,000 mg PO BID [facility] Last Admin: 09/15/20 21:07 Dose: 2,000 mg Documented by: Melatonin (Melatonin) 5 mg PO QHS PRN PRN Reason: Sleep Last Admin: 09/11/20 20:27 Dose: 5 mg Documented by: Paroxetine HCl (Paxil) 10 mg PO QDAY [facility] Last Admin: 09/15/20 09:18 Dose: 10 mg Documented by: Risperidone (Risperdal) 1 mg PO BID [facility] Last Admin: 09/15/20 21:07 Dose: 1 mg Documented by: Trazodone HCl (Desyrel) 75 mg PO QHS [facility] Last Admin: 09/15/20 21:06 Dose: 75 mg Documented by: Valproic Acid (Depakene) 250 mg PO BID [facility] Last Admin: 09/15/20 21:06 Dose: 250 mg Documented by: Results - Results Labs/Vitals: Laboratory Last Values WBC 9.1 K/mm3 (4.5-11.0) 09/07/20 15:11 RBC 5.01 M/mm3 (3.65-5.03) 09/07/20 15:11 Hgb 15.1 gm/dl (11.8-15.2) 09/07/20 15:11 Hct 45.4 % (35.5-45.6) 09/07/20 15:11 MCV 91 fl (84-94) 09/07/20 15:11 MCH 30 pg (28-32) 09/07/20 15:11 MCHC 33 % (32-34) 09/07/20 15:11 RDW 13.9 % (13.2-15.2) 09/07/20 15:11 Plt Count 362 K/mm3 (140-440) 09/07/20 15:11 Lymph % (Auto) 25.0 % (13.4-35.0) 09/07/20 15:11 [place] % (Auto) 6.3 % (0.0-7.3) 09/07/20 15:11 Eos % (Auto) 2.5 % (0.0-4.3) 09/07/20 15:11 Baso % (Auto) 1.3 % (0.0-1.8) 09/07/20 15:11 Lymph # (Auto) 2.3 K/mm3 (1.2-5.4) 09/07/20 15:11 [place] # (Auto) 0.6 K/mm3 (0.0-0.8) 09/07/20 15:11 Eos # (Auto) 0.2 K/mm3 (0.0-0.4) 09/07/20 15:11 Baso # (Auto) 0.1 K/mm3 (0.0-0.1) 09/07/20 15:11 Seg Neutrophils % 64.9 % (40.0-70.0) 09/07/20 15:11 Seg Neutrophils # 5.9 K/mm3 (1.8-7.7) 09/07/20 15:11 Sodium 137 mmol/L (137-145) 09/07/20 15:11 Potassium 4.0 mmol/L (3.6-5.0) 09/07/20 15:11 Chloride 98.8 mmol/L (98-107) 09/07/20 15:11 Carbon Dioxide 22 mmol/L (22-30) 09/07/20 15:11 Anion Gap 20 mmol/L 09/07/20 15:11 BUN 15 mg/dL (9-20) 09/07/20 15:11 Creatinine 0.5 mg/dL (0.8-1.3) L 09/07/20 15:11 Estimated GFR > 60 ml/min 09/07/20 15:11 BUN/Creatinine Ratio 30 % 09/07/20 15:11 Glucose 95 mg/dL (75-100) 09/07/20 15:11 POC Glucose 89 (70-105) 09/08/20 08:02 Hemoglobin A1c 5.2 % (4-6) 09/07/20 15:11 Calcium 9.5 mg/dL (8.4-10.2) 09/07/20 15:11 Total Bilirubin 0.20 mg/dL (0.1-1.2) 09/07/20 15:11 AST 16 units/L (5-40) 09/07/20 15:11 ALT 27 units/L (7-56) 09/07/20 15:11 Alkaline Phosphatase 170 units/L (35-129) H 09/07/20 15:11 Total Protein 7.3 g/dL (6.3-8.2) 09/07/20 15:11 Albumin 4.0 g/dL (3.9-5) 09/07/20 15:11 Albumin/Globulin Ratio 1.2 % 09/07/20 15:11 Triglycerides 150 mg/dL (2-149) H 09/07/20 15:11 Cholesterol 154 mg/dL (50-199) 09/07/20 15:11 LDL Cholesterol Direct 80 mg/dL (50-130) 09/07/20 15:11 HDL Cholesterol 59 mg/dL (40-59) 09/07/20 15:11 Cholesterol/HDL Ratio 2.61 % 09/07/20 15:11 TSH 0.845 mlU/mL (0.270-4.200) 09/07/20 15:11 Hepatitis A IgM Ab Non-reactive (NonReactive) 09/07/20 15:11 Hep Bs Antigen Non-reactive (Negative) 09/07/20 15:11 Hep B Core IgM Ab Non-reactive (NonReactive) 09/07/20 15:11 Hepatitis C Antibody Non-reactive (NonReactive) 09/07/20 15:11 Last Vital Signs Temp 98.7 F 09/15/20 22:00 Pulse 66 09/15/20 22:00 Resp 18 09/15/20 22:00 BP 104/60 09/15/20 22:00 Pulse Ox 94 09/15/20 22:00
[2020-09-16] MEDS: OMEGA-3 FATTY ACIDS/FISH OIL 1 GRAM CAP PO SCH (11:14)
[2020-09-16] MEDS: VALPROIC ACID 250 MG CAP PO SCH (11:15)
[2020-09-16] MEDS: CETIRIZINE 10 MG TAB PO SCH (11:15)
[2020-09-16] MEDS: risperiDONE 1 MG TAB PO SCH (11:15)
[2020-09-16] MEDS: PARoxetine 10 MG TAB PO SCH (11:15)
--- NOTE | 2020-09-16 12:10 | Discharge Summary ---
Providers - Providers Date of Admission: 09/05/20 20:25 Date of discharge: 09/16/20 Attending physician: JERMAINE QUAN MD 09/05/20 16:52 Consult to Physician [CONS] Routine Comment: Consulting Provider: REYNALDO WHITE Physician Instructions: Reason For Exam: medical management [facility] Condition: Good Hospital course: The patient was provided inpatient psychiatric treatment with safe and supportive environment, group/individual therapy, psychiatric medication, medica tion adjustment, adverse effect monitor, medical evaluation, medical treatment, social service assessment, social support meeting, placement assessment and psycho-education. The patients mood, cognition, behavior, motivation, compliance to treatment and appreciation on family/social support are improved and stabilized. At the time of discharge, the patient had no suicidal ideas, no homicidal ideas, no aggressive thoughts, no endangering behavior and no debilitating adverse effects. The patient agareed on the treatment plan, understood the risk, benefit, alternative treatment, potential consequence of no treatment, and gave informed consent. Disposition: DC-01 TO HOME OR SELFCARE Allergies/Adverse Reactions: Allergies No Known Allergies Allergy (Unverified 09/04/20 19:43) Vital Signs: Last Vital Signs Temp 98.9 F 09/16/20 08:33 Pulse 60 09/16/20 08:33 Resp 18 09/16/20 08:33 BP 94/57 09/16/20 08:33 Pulse Ox 96 09/16/20 08:33 Last Lab: Laboratory Last Values WBC 9.1 K/mm3 (4.5-11.0) 09/07/20 15:11 RBC 5.01 M/mm3 (3.65-5.03) 09/07/20 15:11 Hgb 15.1 gm/dl (11.8-15.2) 09/07/20 15:11 Hct 45.4 % (35.5-45.6) 09/07/20 15:11 MCV 91 fl (84-94) 09/07/20 15:11 MCH 30 pg (28-32) 09/07/20 15:11 MCHC 33 % (32-34) 09/07/20 15:11 RDW 13.9 % (13.2-15.2) 09/07/20 15:11 Plt Count 362 K/mm3 (140-440) 09/07/20 15:11 Lymph % (Auto) 25.0 % (13.4-35.0) 09/07/20 15:11 [place] % (Auto) 6.3 % (0.0-7.3) 09/07/20 15:11 Eos % (Auto) 2.5 % (0.0-4.3) 09/07/20 15:11 Baso % (Auto) 1.3 % (0.0-1.8) 09/07/20 15:11 Lymph # (Auto) 2.3 K/mm3 (1.2-5.4) 09/07/20 15:11 [place] # (Auto) 0.6 K/mm3 (0.0-0.8) 09/07/20 15:11 Eos # (Auto) 0.2 K/mm3 (0.0-0.4) 09/07/20 15:11 Baso # (Auto) 0.1 K/mm3 (0.0-0.1) 09/07/20 15:11 Seg Neutrophils % 64.9 % (40.0-70.0) 09/07/20 15:11 Seg Neutrophils # 5.9 K/mm3 (1.8-7.7) 09/07/20 15:11 Sodium 137 mmol/L (137-145) 09/07/20 15:11 Potassium 4.0 mmol/L (3.6-5.0) 09/07/20 15:11 Chloride 98.8 mmol/L (98-107) 09/07/20 15:11 Carbon Dioxide 22 mmol/L (22-30) 09/07/20 15:11 Anion Gap 20 mmol/L 09/07/20 15:11 BUN 15 mg/dL (9-20) 09/07/20 15:11 Creatinine 0.5 mg/dL (0.8-1.3) L 09/07/20 15:11 Estimated GFR > 60 ml/min 09/07/20 15:11 BUN/Creatinine Ratio 30 % 09/07/20 15:11 Glucose 95 mg/dL (75-100) 09/07/20 15:11 POC Glucose 89 (70-105) 09/08/20 08:02 Hemoglobin A1c 5.2 % (4-6) 09/07/20 15:11 Calcium 9.5 mg/dL (8.4-10.2) 09/07/20 15:11 Total Bilirubin 0.20 mg/dL (0.1-1.2) 09/07/20 15:11 AST 16 units/L (5-40) 09/07/20 15:11 ALT 27 units/L (7-56) 09/07/20 15:11 Alkaline Phosphatase 170 units/L (35-129) H 09/07/20 15:11 Total Protein 7.3 g/dL (6.3-8.2) 09/07/20 15:11 Albumin 4.0 g/dL (3.9-5) 09/07/20 15:11 Albumin/Globulin Ratio 1.2 % 09/07/20 15:11 Triglycerides 150 mg/dL (2-149) H 09/07/20 15:11 Cholesterol 154 mg/dL (50-199) 09/07/20 15:11 LDL Cholesterol Direct 80 mg/dL (50-130) 09/07/20 15:11 HDL Cholesterol 59 mg/dL (40-59) 09/07/20 15:11 Cholesterol/HDL Ratio 2.61 % 09/07/20 15:11 TSH 0.845 mlU/mL (0.270-4.200) 09/07/20 15:11 Hepatitis A IgM Ab Non-reactive (NonReactive) 09/07/20 15:11 Hep Bs Antigen Non-reactive (Negative) 09/07/20 15:11 Hep B Core IgM Ab Non-reactive (NonReactive) 09/07/20 15:11 Hepatitis C Antibody Non-reactive (NonReactive) 09/07/20 15:11 Core Measure Documentation - Palliative Care Palliative Care/ Comfort Measures: Not Applicable - Core Measures Any of the following diagnoses?: none Exam - Constitutional Vitals: Temp Pulse Resp BP Pulse Ox 98.9 F 60 18 94/57 96 09/16/20 08:33 09/16/20 08:33 09/16/20 08:33 09/16/20 08:33 09/16/20 08:33 General appearance: Present: no acute distress - EENT Eyes: Present: PERRL, EOM intact ENT: hearing intact, clear oral mucosa - Neck Neck: Present: supple, normal ROM - Respiratory Respiratory effort: normal - Abdominal General gastrointestinal: Present: deferred Male genitourinary: Present: deferred - Integumentary Integumentary: Present: clear, warm, dry Plan Activity: no restrictions Care Plan Goals: Goals: Maintain good and stable mental health. Plan of Treatment: The patient should be compliant with medications, not to use drugs and not to drink alcohol. The patient understands that if suicidal ideas, homicidal ideas, or any endangering thoughts arise, the patient should immediately seek for emergent assistance including but not limited to crisis hot line and emergency room. Follow up with outpatient Psychiatrist and PCP within 7 - 14 days of discharge. Follow up with: NICOLE WELCH MD [Primary Care Provider] - 7 Days Prescriptions: traZODone [Desyrel] 75 mg PO QHS #30 tablet Valproic Acid [Depakene] 250 mg PO BID #60 capsule PARoxetine [Paxil] 10 mg PO QDAY #30 tablet risperiDONE [RisperDAL] 1 mg PO BID #60 tablet
[2020-09-16 13:59] VITALS: BP 96/54
== END 2020-09-16 16:25 | disposition home or self-care (01) | DRG 885 ==
LOC: UNDOADMIN 16:16 → 3A 16:16 → 5A 20:25
PROVIDERS: ADMIT Psychiatry & Neurology Psychiatry; ATTEND Psychiatry & Neurology Psychiatry
DX: F25.9 Schizoaffective disorder, unspecified (principal); I10 Essential (primary) hypertension; Z79.899 Other long term (current) drug therapy
CPT/HCPCS: 36415; 71045; 80048; 80053; 80061; 80074; 80307; 80320; 81001; 82962; 83036; 84443; 85025; G0378; A9270-GY; G0480; U0003-CS